=== PATIENT | male | born 1955 | race Caucasian/White ===

== ENCOUNTER → 2017-09-24 | Outpatient (CLI) | payer BC, SELFPAY | PROVIDERS: Family Provider Internal Medicine Adolescent Medicine; Visit Provider Nurse Practitioner Family | DX: M25.561 Pain in right knee (principal) | CPT/HCPCS: 73562 ==

== ENCOUNTER → 2018-10-14 12:38 | Outpatient (CLI) | payer BC, SELFPAY ==
--- NOTE | 2018-10-14 12:45 | XR_ITS ---
XR chest 2V HISTORY: ITS.REASON: ACUTE BRONCHOPNEUMONIA, PERSISTANT COUGH ORDERING PHYSICIAN: Vanessa Henley PATIENT AGE: 63 years COMPARISON: None FINDINGS: The cardiomediastinal silhouette and pulmonary vascularity are within normal limits. The lungs are clear without infiltrates, suspicious nodules, or pleural effusions. Calcified granuloma is present in the right middle lobe No acute bony abnormalities. IMPRESSION: Negative chest, no acute finding
== END ==
PROVIDERS: PCP Internal Medicine Adolescent Medicine; Visit Provider Nurse Practitioner Family
DX: J18.0 Bronchopneumonia, unspecified organism (principal); R05 Cough
CPT/HCPCS: 71046

== ENCOUNTER → 2020-04-14 07:13 | Outpatient (CLI) | payer MEDICARE, SELFPAY ==
--- NOTE | 2020-04-14 07:26 | XR_ITS ---
PROCEDURE: XR CERVICAL SPINE 4V CLINICAL INDICATION: CERVICALGIA Neck pain COMPARISON: No exams were available for comparison FINDINGS: Normal alignment. Upper thoracic kyphosis. Degenerative disc disease C3-C4. Anterior osteophytes C3-C4 and C4-C5. No fracture or dislocation. Minimal foraminal narrowing bilaterally at C3-C4. No lytic or blastic change. IMPRESSION: Degenerative disc disease with mild bilateral foraminal narrowing at C3-C4 Dictated by: Arnel Stone MD 04/14/2020 07:56 Electronically signed by Arnel Stone MD in [place] 04/14/2020 07:56
[2020-04-14 07:31] LABS: Basophils % 0.4 % (0.1-2.0); Eosinophils # 0.1 K/mm3 (0.0-0.4); Eosinophils % 1.2 % (0.1-12.0); Hematocrit 45.1 % (42.0-52.0); Hemoglobin 15.3 g/dL (14.1-18.0); Lymphocytes # 1.2 K/mm3 (0.7-4.5); Lymphocytes % 15.5 % (10-50); Mean Corpuscular Hemoglobin 31.5 pg (27.0-31.2); Mean Corpuscular Volume 92.6 fl (80-94); Mean Platelet Volume 6.6 fl (7.4-10.4); Monocytes # 0.8 K/mm3 (0.1-1.0); Monocytes % 9.8 % (1.7-9.3); Neutrophils # 5.8 K/mm3 (1.8-7.8); Neutrophils % 73.1 % (37.0-80.0); Platelet Count 279 K/mm3 (142-424); Red Blood Count 4.87 M/mm3 (4.60-6.20)
[2020-04-14 08:41] LABS: Erythrocyte Sedimentation Rate 9 mm/hr (0-20)
[2020-04-14 08:45] LABS: Chloride 106 mmol/L (98-107); Potassium 5.3 mmoL/L (3.5-5.1); Sodium 141 mmol/L (136-145)
[2020-04-14 08:47] LABS: Alanine Aminotransferase 53 U/L (12-78); Alkaline Phosphatase 89 U/L (38-126); Aspartate Amino Transferase 37 U/L (17-59); Bilirubin,Total 0.5 mg/dl (0.2-1.3); Blood Urea Nitrogen 13 mg/dl (9-20); Estimated Glomerular Filt Rate 56 ml/min (>60); GFR (African American) 67 ML/MIN (>60)
[2020-04-14 08:48] LABS: Albumin Level 4.3 g/dl (3.5-5.0); Albumin/Globulin Ratio 1.9 (1.1-1.8); Anion Gap 12.3 mEq/L (5-15); Calcium 9.8 mg/dl (8.4-10.2); Carbon Dioxide 28 mmol/L (22.0-30.0); Chol/HDL Ratio 4.4 (1-3.5); Cholesterol 173 mg/dl (140-200); Globulin 2.3 g/dL (1.3-3.2); Glucose 106 mg/dl (74-100); HDL Cholesterol 39 mg/dl (40-60); Total Protein,Serum 6.6 g/dl (6.3-8.2); Triglycerides 209 mg/dl (30-150); Uric Acid 9.1 mg/dl (3.5-8.5); VLDL Cholesterol 42 mg/dL (0-40)
[2020-04-14 08:59] LABS: Direct LDL Cholesterol 105.27 mg/dL (100-129)
== END ==
PROVIDERS: Visit Provider Internal Medicine Adolescent Medicine
DX: M12.9 Arthropathy, unspecified (principal); I10 Essential (primary) hypertension; M10.072 Idiopathic gout, left ankle and foot; M54.2 Cervicalgia
CPT/HCPCS: 36415; 72050; 80053; 80061; 84550; 85025; 85651

== ENCOUNTER → 2020-05-19 11:48 | Outpatient (CLI) | payer MEDICARE, SELFPAY ==
[2020-05-19 12:56] LABS: Basophils % 0.2 % (0.1-2.0); Eosinophils % 0.1 % (0.1-12.0); Hematocrit 43.9 % (42.0-52.0); Hemoglobin 14.8 g/dL (14.1-18.0); Lymphocytes # 0.8 K/mm3 (0.7-4.5); Lymphocytes % 6.2 % (10-50); Mean Corpuscular HGB Conc 33.6 g/dL (31.8-35.4); Mean Corpuscular Hemoglobin 30.2 pg (27.0-31.2); Mean Corpuscular Volume 89.9 fl (80-94); Mean Platelet Volume 7.2 fl (7.4-10.4); Monocytes # 1.2 K/mm3 (0.1-1.0); Monocytes % 8.9 % (1.7-9.3); Neutrophils # 11.2 K/mm3 (1.8-7.8); Neutrophils % 84.6 % (37.0-80.0); Platelet Count 725 K/mm3 (142-424); Red Blood Count 4.89 M/mm3 (4.60-6.20); Red Cell Distribution Width 12.8 % (11.5-17.5); White Blood Count 13.2 K/mm3 (4.8-10.8)
[2020-05-19 13:50] LABS: Chloride 100 mmol/L (98-107)
[2020-05-19 13:51] LABS: Potassium 4.9 mmoL/L (3.5-5.1); Sodium 139 mmol/L (136-145)
[2020-05-19 13:53] LABS: Alanine Aminotransferase 148 U/L (12-78); Alkaline Phosphatase 132 U/L (38-126); Aspartate Amino Transferase 106 U/L (17-59); Bilirubin,Total 0.6 mg/dl (0.2-1.3); Blood Urea Nitrogen 20 mg/dl (9-20); Estimated Glomerular Filt Rate 75 ml/min (>60); GFR (African American) 91 ML/MIN (>60)
[2020-05-19 13:54] LABS: Albumin Level 4.2 g/dl (3.5-5.0); Albumin/Globulin Ratio 1.4 (1.1-1.8); Anion Gap 17.9 mEq/L (5-15); Calcium 9.9 mg/dl (8.4-10.2); Carbon Dioxide 26 mmol/L (22.0-30.0); Globulin 3.1 g/dL (1.3-3.2); Glucose 115 mg/dl (74-100); Total Protein,Serum 7.3 g/dl (6.3-8.2)
[2020-05-19 14:13] LABS: Uric Acid 5.9 mg/dl (3.5-8.5)
== END ==
PROVIDERS: Visit Provider Internal Medicine Adolescent Medicine
DX: M10.9 Gout, unspecified (principal)
CPT/HCPCS: 36415; 80053; 84550; 85025

== ENCOUNTER → 2020-06-19 13:48 | Outpatient (POV) | payer MEDICARE, SELFPAY | PROVIDERS: Visit Provider Dermatology | DX: Z00.00 Encounter for general adult medical examination without abnormal findings (principal) ==

== ENCOUNTER 2020-06-29 17:09 | Emergency (ER) | payer MEDICARE, SELFPAY ==
[2020-06-29 17:18] VITALS: BP 161/91; PULSE 86; RESP 18; TEMP 36.7; O2SAT 99; BMI 28.2
--- NOTE | 2020-06-29 17:31 | CT_ITS ---
PROCEDURE: CT CERVICAL SPINE WO CON CLINICAL INDICATION: fall, posterior neck pain Neck injury with pain, contusion/abrasion or hematoma, cervical sprain/strain the COMPARISON: No exams were available for comparison TECHNIQUE: Axial images obtained with sagittal and coronal reformats. All CT scans at the facility use one or more dose reduction, viz: automated exposure control, ma/kV adjustment per patient size (including targeted exams where dose is matched to indication, i.e. head), or iterative reconstruction technique. Axial spiral CT scanning performed of the cervical spine beginning at the base of the skull and continuing to the upper T-spine. 3-D multiplanar reconstruction with 3-D manipulation of volumetric data set in image rendering was completed by the radiologist and/or technologist with the supervision of the radiologist on independent workstation. FINDINGS: There is straightening/reversal of the normal lordosis which may be due to patient positioning or muscle spasm. No acute fracture or dislocation. Mild multilevel cervical spondylosis is present. C3-C4: Degenerate disc disease with mild endplate hypertrophic change. C4-C5: Mild degenerative disc disease. C5-C6 and C6-C7 show mild degenerative disc disease. There is mild facet hypertrophic/arthritic change at C6-C7. Hypertrophic changes are present at the sternoclavicular joints. Lung apices are clear IMPRESSION: 1. No acute fracture. 2. Cervical spondylosis Dictated by: Arnel Stone MD 06/29/2020 18:43 Arnel Stone MD in [facility] 06/29/2020 18:43
--- NOTE | 2020-06-29 17:31 | CT_ITS ---
PROCEDURE: CT HEAD/BRAIN WO CON CLINICAL INDICATION: fall, headache Posttraumatic pain, Head injury with headache/pain, contusion, abrasion or hematoma COMPARISON: No exams were available for comparison TECHNIQUE: Axial images obtained. All CT scans at the facility use one or more dose reduction, viz: automated exposure control, ma/kV adjustment per patient size (including targeted exams where dose is matched to indication, i.e. head), or iterative reconstruction technique. FINDINGS: No midline shift, mass effect, intracranial hemorrhage, hydrocephalus, or extra-axial fluid collection is evident. There are low-density changes in the left frontal parietal subcortical white matter and in the right parietal temporal white matter nonspecific but could be related to ischemic gliotic changes. The calvarium has an unremarkable appearance. No mastoid effusion. Mild mucosal thickening of the sphenoid and ethmoid sinuses. IMPRESSION: 1. No definite acute finding. 2. Non-specific white matter hypodensities which could be due to ischemic gliotic changes from microvascular disease. Stability may be confirmed with follow-up. Dictated by: Arnel Stone MD 06/29/2020 18:40 Arnel Stone MD in [facility] 06/29/2020 18:40
[2020-06-29 17:32] VITALS: BP 149/83; PULSE 82; O2SAT 98
--- NOTE | 2020-06-29 17:58 | PC.NURSE ---
Pt returned from rad.
--- NOTE | 2020-06-29 18:16 | HMH.EDGENADL ---
ED Disposition Clinical Impression: Occipital headache, Cervicalgia Disposition: Home, Self-Care Condition on Discharge: Good Additional Instructions: Take Tylenol for pain. Prednisone as prescribed. Follow-up with Dr. Munroe in the office next week. Additional instructions for HEADACHE: See your physician as soon as possible for further evaluation. Return immediately if worsening headache, vomiting, problems with vision or speech, fever, numbness or weakness of the extremities, neck pain or stiffness. Prescriptions: predniSONE [Prednisone 20mg Tab] 20 mg PO BID #10 tab Prescription Printed Referrals: Andrzej Munroe MD [Primary Care Provider] - - Critical Care Critical Care Time: No Attestation: On 06/29/20, the high probability of a clinically significant, sudden or life threatening deterioration of the following system(s) required my full and direct attention, intervention and personal management. The time I documented below is in addition to time spent performing reported procedures but includes the following listed in this critical care notation. Medical Decision Making - James Inquiry Pt receiving controlled substance: No Vital Signs: 06/29/20 17:18 06/29/20 17:32 Temperature 98.1 F Temperature Source Oral Pulse Rate [Right Radial] 86 82 Respiratory Rate 18 Blood Pressure [Right Arm] 161/91 H 149/83 H Blood Pressure Mean [Right Arm] 114 105 Blood Pressure Source [Right Arm] Automatic Cuff Automatic Cuff Blood Pressure Position [Right Arm] Sitting Sitting 02 Sat by Pulse Oximetry 99 98 Oxygen Delivery Method Room Air Room Air Orders (Tests/Meds): ORDERS Category Date Time Status CT cervical spine wo con Stat Cat Scan 06/29/20 17:[address] head/brain wo con Stat Cat Scan 06/29/20 17:31 Taken - CT Data CT Scan: Head, C-Spine Time Received: 18:20 ([facility] fax) ED CT Reviewed: Yes: I have viewed the radiologist's interpretation Findings Narrative: Head: No acute intracranial abnormality Cervical spine: Mild degenerative changes throughout the cervical spine. No evidence of acute fracture, malalignment, or discrete bony destruction. General Adult HPI - General Chief complaint: PAIN Stated complaint: pain in back of neck/head Time Seen by Provider: 06/29/20 18:05 Mode of Arrival: Ambulatory Limitations: No Limitations Description of Symptoms (Recalled from ER Triage Doc. by RN): Pt c/o pain in the top of his head and posterior neck pain. Pt reports has been having pain for approx 2 weeks. Pt reports he had a fall approx 3 weeks ago. Pt reports he saw pcp on 06/25/20 and was started on augmentin for sinus infection, pt reports no improvement in symptoms. - History of Present Illness HPI narrative: Complains of posterior neck pain and occipital head pain for about a week or 2, uncertain of exactly when it started. States that it hurts worse at night. When he gets up in the morning he says it is hard to turn his head because of the pain. Pain is exacerbated by movement. Denies any radiation into the arms. No numbness or weakness of the arms. No visual symptoms. He says that he fell about 2 to 3 weeks ago but he does not know whether he hit his head or neck. He says his head and neck pain did not start for days after that fall, therefore he does not feel it is related to the fall although he says he cannot be sure. He states that he saw his primary care doctor, Dr. Munroe, and was put on antibiotic for sinus infection but it did not help. He is not taking any [id number] medications and is on no pain medication. He says he has a history of gout. He has been on steroids previously for his gout and he takes allopurinol. He does not have diabetes. - Related Data Home Medications Medication Instructions Recorded Confirmed Amlodipine Besylate [Amlodipine 10 mg PO DAILY 06/29/20 06/29/20 10mg Tab] Amoxicillin/Potassium Clav 1 tab P
[2020-06-29 18:32] VITALS: BP 152/97; PULSE 82; RESP 20; TEMP 36.7; O2SAT 97
== END 2020-06-29 18:34 | disposition home or self-care (01) ==
PROVIDERS: Emergency Provider Emergency Medicine; PCP Internal Medicine Adolescent Medicine
DX: R51 Headache (principal); M54.2 Cervicalgia; I10 Essential (primary) hypertension
CPT/HCPCS: 70450; 72125; 99282

== ENCOUNTER 2020-07-08 15:47 | Emergency (ER) | payer MEDICARE, SELFPAY ==
[2020-07-08 15:48] VITALS: BP 198/96; PULSE 95; RESP 19; TEMP 36.6; O2SAT 98; BMI 28.2
--- NOTE | 2020-07-08 16:04 | HMH.EDHA ---
ED Disposition Clinical Impression: Occipital headache Disposition: Home, Self-Care Condition on Discharge: Fair Instructions: DI for Headache Additional Instructions: CT exam of head and neck reviewed without any acute intracranial finding. Patient be treated with ketorolac orphenadrine with as needed prescription sent to pharmacy. Patient has been advised to follow-up with his primary care physician for possible MRI if headache persists. Prescriptions: Cyclobenzaprine HCl [Cyclobenzaprine 5mg Tab] 5 mg PO Q8HP PRN #30 tab PRN Reason: pain/spasm Prescription Printed Ketorolac Tromethamine [Toradol 10mg tablet] 10 mg PO Q6H 5 Days #20 tab Prescription Printed Referrals: Andrzej Munroe MD [Primary Care Provider] - - Critical Care Critical Care Time: No Attestation: On , the high probability of a clinically significant, sudden or life threatening deterioration of the following system(s) required my full and direct attention, intervention and personal management. The time I documented below is in addition to time spent performing reported procedures but includes the following listed in this critical care notation. Medical Decision Making - Medical Records Medical records reviewed: Yes: I reviewed the patient's medical records. - James Inquiry Pt receiving controlled substance: No Vital Signs: 07/08/20 15:48 Temperature 97.8 F Temperature Source Oral Pulse Rate [Left Radial] 95 H Respiratory Rate 19 Blood Pressure [Right Arm] 198/96 H Blood Pressure Mean [Right Arm] 130 Blood Pressure Source [Right Arm] Automatic Cuff Blood Pressure Position [Right Arm] Sitting 02 Sat by Pulse Oximetry 98 Oxygen Delivery Method Room Air Headache HPI - General Chief Complaint: Headache Stated Complaint: back of head hurts Time Seen by Provider: 07/08/20 16:00 Mode of Arrival: Ambulatory Limitations: No Limitations Description of Symptoms (Recalled from ER Triage Doc. by RN): c/o headache for one month. States he seen his PCP who told him it was sinuses but pt states he thinks its more than that - History of Present Illness HPI Narrative: This is a 65-year-old male that presents with intermittent headache x4 weeks. Pain is located at the top of the head radiating back to the occiput. Patient was seen and evaluated here approximately 1 week ago and had CT of the cervical spine as well as the head without contrast. Exam was unremarkable with no acute intercranial findings found. Patient reports headache came back a few days ago and has been ongoing. Pain is scribed as sore and constant. Pain 6-7 out of 10 in intensity without exacerbating measures. No nausea or vomiting. No changes in vision or hearing. No focal neurologic deficit. - Related Data Home Medications Medication Instructions Recorded Confirmed Amlodipine Besylate [Amlodipine 10 mg PO DAILY 06/29/20 06/29/20 10mg Tab] Amoxicillin/Potassium Clav 1 tab PO BID 06/29/20 06/29/20 [Amox-Clav 875-125 mg Tablet] Previous Rx's Medication Instructions Recorded predniSONE [Prednisone 20mg 20 mg PO BID #10 tab 06/29/20 Tab] Cyclobenzaprine HCl 5 mg PO Q8HP PRN #30 tab 07/08/20 [Cyclobenzaprine 5mg Tab] Ketorolac Tromethamine [Toradol 10 mg PO Q6H 5 Days #20 tab 07/08/20 10mg tablet] Allergies Allergy/AdvReac Type Severity Reaction Status Date / Time No Known Allergies Allergy Verified 05/11/18 11:51 [facility] History - Hepatitis A Screen Drug use history?: No High risk sexual behaviors?: No History of sexually transmitted infection?: No Currently employed?: No Childcare worker?: No Do you have indoor plumbing?: Yes Do you have electricity?: Yes Attestation statement:: This patient has been screened for Hepatitis A risk factors. I have reviewed the patient's past medical history: Yes Medical History: Denies:: Diabetes Mellitus Type 1, Diabetes Mellitus Type 2 - Social History Ch[place]
[2020-07-08 16:41] VITALS: BP 174/85; PULSE 87; RESP 17; TEMP 36.7; O2SAT 96
== END 2020-07-08 16:49 | disposition home or self-care (01) ==
LOC: ER 16:45
PROVIDERS: Emergency Provider Emergency Medicine; PCP Internal Medicine Adolescent Medicine
DX: G44.89 Other headache syndrome (principal); I10 Essential (primary) hypertension
CPT/HCPCS: 96372; 99281

== ENCOUNTER → 2021-01-17 12:37 | Outpatient (CLI) | payer MEDICARE, SELFPAY ==
[2021-01-17 12:40] LABS: Microscopic, Urine URINE MICROSCOPIC (MICROSCOPIC)
[2021-01-17 13:10] LABS: Appearance,Urine CLEAR (Clear); Bilirubin,Urine Negative (Negative); Blood, Urine Negative (Negative); Color,Urine YELLOW (Yellow); Glucose,Urine (UA) Negative (Negative); Ketones,Urine Negative (Negative); Leukocyte Esterase,Urine Negative (Negative); Nitrate,Urine Negative (Negative); PH,Urine 6.5 (5.0-8.5); Protein,Urine Negative (Negative); Specific Gravity, Urine <= 1.005 (1.005-1.030); Urobilinogen,Urine 0.2 EU/dl (0.2)
[2021-01-17 13:15] LABS: Basophils % 0.4 % (0.1-2.0); Eosinophils # 0.1 K/mm3 (0.0-0.4); Eosinophils % 0.5 % (0.1-12.0); Hematocrit 48.9 % (42.0-52.0); Hemoglobin 15.9 g/dL (14.1-18.0); Lymphocytes # 1.1 K/mm3 (0.7-4.5); Lymphocytes % 13.1 % (10-50); Mean Corpuscular HGB Conc 32.6 g/dL (31.8-35.4); Mean Corpuscular Hemoglobin 29.5 pg (27.0-31.2); Mean Corpuscular Volume 90.5 fl (80-94); Mean Platelet Volume 6.9 fl (7.4-10.4); Monocytes # 0.7 K/mm3 (0.1-1.0); Monocytes % 7.8 % (1.7-9.3); Neutrophils # 6.6 K/mm3 (1.8-7.8); Neutrophils % 78.2 % (37.0-80.0); Platelet Count 314 K/mm3 (142-424); Red Cell Distribution Width 14.3 % (11.5-17.5); White Blood Count 8.4 K/mm3 (4.8-10.8)
[2021-01-17 13:19] LABS: Squamous Epithelial Cell,Urine Occasional #/hpf (0-5)
[2021-01-17 13:37] LABS: Chloride 101 mmol/L (98-107); Sodium 141 mmol/L (136-145)
[2021-01-17 13:38] LABS: Potassium 4.5 mmoL/L (3.5-5.1)
[2021-01-17 13:40] LABS: Alanine Aminotransferase 49 U/L (12-78); Alkaline Phosphatase 123 U/L (38-126); Amylase 61 U/L (30-110); Anion Gap 14.5 mEq/L (5-15); Aspartate Amino Transferase 40 U/L (17-59); Bilirubin,Total 0.8 mg/dl (0.2-1.3); Blood Urea Nitrogen 14 mg/dl (9-20); Calcium 10.2 mg/dl (8.4-10.2); Carbon Dioxide 30 mmol/L (22.0-30.0); Estimated Glomerular Filt Rate 67 ml/min (>60); GFR (African American) 81 ML/MIN (>60); Glucose 106 mg/dl (74-100); Lipase 140 U/L (23-300)
[2021-01-17 13:41] LABS: Albumin Level 5.3 g/dl (3.5-5.0); Globulin 2.6 g/dL (1.3-3.2); Total Protein,Serum 7.9 g/dl (6.3-8.2)
== END ==
PROVIDERS: Visit Provider Internal Medicine Adolescent Medicine
DX: R10.84 Generalized abdominal pain (principal); R35.0 Frequency of micturition
CPT/HCPCS: 36415; 80053; 81001; 82150; 83690; 85025

== ENCOUNTER → 2021-10-03 12:29 | Outpatient (CLI) | payer MEDICARE, SELFPAY ==
[2021-10-03 12:46] LABS: Basophils # 0.2 K/mm3 (0-0.2); Basophils % 3.2 % (0.1-2.0); Eosinophils # 0.1 K/mm3 (0.0-0.4); Eosinophils % 1.2 % (0.1-12.0); Hematocrit 49.7 % (42.0-52.0); Hemoglobin 16.1 g/dL (14.1-18.0); Lymphocytes % 13.9 % (10-50); Mean Corpuscular HGB Conc 32.3 g/dL (31.8-35.4); Mean Corpuscular Hemoglobin 30.2 pg (27.0-31.2); Mean Corpuscular Volume 93.5 fl (80-94); Mean Platelet Volume 7.1 fl (7.4-10.4); Monocytes # 0.7 K/mm3 (0.1-1.0); Monocytes % 10.4 % (1.7-9.3); Neutrophils % 71.3 % (37.0-80.0); Platelet Count 338 K/mm3 (142-424); Red Blood Count 5.31 M/mm3 (4.60-6.20); Red Cell Distribution Width 13.6 % (11.5-17.5)
[2021-10-03 14:23] LABS: Alanine Aminotransferase 81 U/L (12-78); Albumin Level 4.6 g/dl (3.5-5.0); Albumin/Globulin Ratio 1.8 (1.1-1.8); Alkaline Phosphatase 127 U/L (38-126); Anion Gap 13.2 mEq/L (5-15); Aspartate Amino Transferase 59 U/L (17-59); Bilirubin,Total 0.5 mg/dl (0.2-1.3); Blood Urea Nitrogen 14 mg/dl (9-20); Calcium 9.7 mg/dl (8.4-10.2); Carbon Dioxide 26 mmol/L (22.0-30.0); Chloride 103 mmol/L (98-107); Estimated Glomerular Filt Rate 67 ml/min (>60); GFR (African American) 81 ML/MIN (>60); Globulin 2.5 g/dL (1.3-3.2); Glucose 102 mg/dl (74-100); Potassium 4.2 mmoL/L (3.5-5.1); Sodium 138 mmol/L (136-145); Total Protein,Serum 7.1 g/dl (6.3-8.2)
== END ==
PROVIDERS: Visit Provider Internal Medicine Adolescent Medicine
DX: R10.9 Unspecified abdominal pain (principal)
CPT/HCPCS: 36415; 80053; 83735; 85025

== ENCOUNTER → 2021-10-29 13:48 | Outpatient (POV) | payer MEDICARE, SELFPAY | PROVIDERS: Visit Provider Dermatology | DX: Z00.00 Encounter for general adult medical examination without abnormal findings (principal) ==

== ENCOUNTER → 2023-02-09 15:16 | Outpatient (CLI) | payer MEDICARE, SELFPAY | LOC: RT 15:18 | PROVIDERS: PCP Internal Medicine Adolescent Medicine; Visit Provider Internal Medicine Adolescent Medicine | DX: R55 Syncope and collapse (principal) | CPT/HCPCS: 93225; 93226 ==

== ENCOUNTER → 2023-03-05 07:48 | Outpatient (CLI) | payer MEDICARE, SELFPAY ==
--- NOTE | 2023-03-05 | CA_ITS ---
APPROVED REPORT Exam: Pharmacologic Technologist: Itzel Marshall, Ht: 6 ft 0 in Wt: 212 lbs BSA: 2.18 m2 HR: 76 bpm BP: 168/85 mmHg Rhythm: NSR Medical History Medications: Amlodipine,,,,, Stress Test Details Test: LEXISCAN Reason for pharmacologic stress test: physical limitation. HR Resting HR: 75 bpm Max Heart Rate (APMHR): 153 bpm Max HR Achieved: 110 bpm Target HR (85% APMHR): 130 bpm % of APMHR: 72 Recovery HR: 96 bpm BP Resting BP: 168/85 mmHg Max BP: 185/89 mmHg Recovery BP: 168.0/89.0 mmHg ECG Resting ECG: NSR, right axis deviation Stress ECG: Change Arrhythmia: VPC's Recovery ECG: No change Recovery Arrhythmia: None Clinical Exercise duration: 04:01 min Highest Stage Achieved: Stress ECG Conclusion Switched from exercise at pt request. Symptoms: None Arrhythmias/Ectopy: Rare PVC. ST-T Changes: No significant ST changes. Conclusion: Unremarkable Lexiscan stress. Myoview images reported separately. Test Summary REST . . . . . . . Resting REST 08:45 . . 75 . 168/ 85 . . Stage 1 01:00 . . 108 . . . . Stage 2 01:00 . . 102 . . . . Stage 3 01:00 . . 94 . 185/ 89 . . Stage 4 01:00 . . 94 . 173/ 84 . . Stage 4 01:01 . . 94 . 173/ 84 . Stop exercise at 04:01 RECOVERY 01:00 . . 97 . . . . RECOVERY 02:00 . . 93 . . . . RECOVERY 03:00 . . 95 . 168/ 89 . . RECOVERY 03:17 . . 95 . 168/ 89 . . Electronically signed by : Quynh Pérez, 03/05/2023 23:31:03
--- NOTE | 2023-03-05 08:27 | NM_ITS ---
APPROVED REPORT Exam: Nuclear Stress Test Indication: fatigue Patient Location: Outpatient Stress Tech: Itzel Mims MD Tech:Linda Foreman ROBINSON RT(R)(N) Ht: 6 ft 0 in Wt: 212 lbs HR: 75 bpm BP: 168/85 mmHg BSA: 2.18 m2 TID: 0.94 History: fatigue Procedure: Patient received 0.4 mg of intravenous Lexiscan, resting heart rate 75 bpm, resting blood pressure 168/85 mmHg, with Lexiscan maximum heart rate achieved was 110 bpm which is 85 % of the maximum predicted heart rate and blood pressure was 185/89 mmHg. With Lexiscan, patient denied any complaint of chest pain. Cardiac Stress and Resting SPECT Images: Cardiac Stress and Resting SPECT images were obtained using technetium 99m Myoview 32.2 mCi stress and 10.19 mCi at rest. Resting and supine stress imaging demonstrates medium sized, mild, fixed perfusion defect in the inferior LV wall. This perfusion defect no longer visualized with prone stress imaging. Findings are most suggestive of diaphragmatic attenuation. Gated imaging demonstrates normal global and regional LV systolic function. LVEF is calculated at 65%. Conclusion: Diaphragmatic attenuation is present. No definite fixed or reversible perfusion defects. Gated imaging demonstrates normal global and regional LV systolic function. LVEF is calculated at 65%. Electronically signed by : Quynh Pérez, 03/05/2023 23:34:22
== END ==
LOC: RAD 07:49
PROVIDERS: PCP Internal Medicine Adolescent Medicine; Visit Provider Nurse Practitioner Family
DX: R06.09 Other forms of dyspnea (principal)
CPT/HCPCS: 78452; 93017; A9502; J2785

== ENCOUNTER → 2023-03-26 10:11 | Outpatient (CLI) | payer MEDICARE, SELFPAY ==
--- NOTE | 2023-03-26 10:14 | MR_ITS ---
FINAL REPORT CLINICAL HISTORY: HEADACHES FINDINGS: Multi planar MR imaging was obtained through the brain without contrast. The midline structures appear intact. There is no evidence of Chiari malformation. On T2 and flair axial images there is increased signal in the deep white matter throughout, compatible with ischemic/gliotic change. On diffusion-weighted images there is no evidence of restricted diffusion. The visualized paranasal sinuses demonstrate mild soft tissue thickening in the inferior maxillary sinuses.. The seventh and eighth nerve root complexes are intact. IMPRESSION: Increased signal in the deep white matter, diffuse, compatible with ischemic gliotic microvascular change. No acute intracranial abnormality is identified. Reviewed, Interpreted and Dictated by Norman Link MD Transcribed by Carina Carrion Authenticated and [facility]
== END ==
PROVIDERS: PCP Internal Medicine Adolescent Medicine; Visit Provider Physician Assistant
DX: R51.9 Headache, unspecified (principal)
CPT/HCPCS: 70551

== ENCOUNTER 2023-03-28 18:00 | Emergency (ER) | payer MEDICARE, SELFPAY ==
[2023-03-28] VITALS (10 sets, daily range): BP systolic 146–177; BP diastolic 80–101; PULSE 81–104; RESP 17–19; TEMP 36.4; O2SAT 96–98; BMI 29.5
--- NOTE | 2023-03-28 19:27 | PC.NURSE ---
Rounded on pt. No needs voiced.
--- NOTE | 2023-03-28 20:05 | HMH.EDGENADL ---
Discharge Plan Disposition Patient Disposition: Home, Self-Care Condition: Good Prescriptions Prescriptions: No Action amlodipine 10 MG tablet 10 mg PO DAILY amoxicillin-pot clavulanate 1 EACH tablet 1 tab PO BID prednisone 20 MG tablet 20 mg PO BID Qty: 10 0RF ketorolac 10 MG tablet 10 mg PO Q6H 5 Days Qty: 20 0RF cyclobenzaprine 5 MG tablet 5 mg PO Q8HP PRN (Reason: pain/spasm) Qty: 30 0RF Referrals Follow up/Referrals: Andrzej Munroe MD [Primary Care Provider] - See instructions Clinical Impressions Clinical Impression: Migraine Discharge ED Provider: Cecilio Ace General Adult HPI General Chief complaint: Recheck/Abnormal Lab/Rx Stated complaint: LINARES Time Seen by Provider: 03/28/23 18:03 Mode of Arrival: Ambulatory Source of Information: Patient Limitations: No Limitations Description of Symptoms (Recalled from ER Triage Doc. by RN): 67 yo M presents to ED for results from MRI test that was performed on 03/26/23. pt states that he had the MRI due to headaches. History of Present Illness HPI narrative: Is a 67-year-old male presenting with headache and requesting results for MRI. Patient states he has been having headaches, had MRI done on 03/26. Requesting results. States he still having headache. Has not taken any medications for it denies neurologic deficits. Related Data Home Medications Medication Instructions Recorded Confirmed amlodipine 10 mg tablet 10 mg PO DAILY htn 06/29/20 06/29/20 amoxicillin 875 mg-potassium 1 tab PO BID Sinus infection 06/29/20 06/29/20 clavulanate 125 mg tablet Previous Rx's Medication Instructions Recorded prednisone 20 mg tablet 20 mg PO BID #10 tabs 06/29/20 cyclobenzaprine 5 mg tablet 5 mg PO Q8HP PRN pain/spasm #30 07/08/20 tabs ketorolac 10 mg tablet 10 mg PO Q6H 5 days #20 tabs 07/08/20 Allergies Allergy/AdvReac Type Severity Reaction Status Date / Time No Known Allergies Allergy Verified 05/11/18 11:51 [facility] Disclaimer: The information contained in this section may have been updated after the patient was seen, as this information can be updated by other users. Social History Smoking Status: Never smoker second hand exposure: No alcohol intake: never current occupational status: retired Travel in the last 8 weeks: None ROS Obtained: Yes All systems reviewed & no additional complaints except as documented Physical Exam General General appearance: alert and in no apparent distress Head Head exam: atraumatic, normocephalic and normal inspection Eye Eye exam: Present normal appearance, PERRL and EOMI ENT ENT exam: Present normal exam, normal oropharynx, mucous membranes moist, TM's normal bilaterally and normal external ear exam Neck Neck exam: Present normal inspection, full ROM and trachea midline; Absent meningismus or lymphadenopathy Chest Chest inspection: Present normal inspection and symmetric chest wall rise; Absent tenderness Respiratory Respiratory exam: Present normal lung sounds bilaterally; Absent respiratory distress Cardiovascular Cardiovascular exam: Present regular rate and normal rhythm; Absent JVD Abdominal Exam Abdominal exam: Present soft and normal bowel sounds; Absent distention, tenderness or guarding Extremities Exam Extremities exam: Present normal inspection, full ROM and normal capillary refill; Absent calf tenderness Back Exam Back exam: Present normal inspection; Absent tenderness Neurological Exam Neurological exam: Present alert and oriented X3 Psychiatric Psychiatric exam: Present normal affect and normal mood Skin Skin exam: Present warm, dry, intact and normal color Lymphatic Lymphatic Findings: no adenopathy Medical Decision Making Medical Records Medical records reviewed: Yes I reviewed the patient's medical records. James Inquiry Pt receiving controlled substance: No James was queried for this patient: No Vital Signs: 03/28/23 18:
--- NOTE | 2023-03-28 20:18 | PC.NURSE ---
DR. MEEHAN AT BS
== END 2023-03-28 21:32 | disposition home or self-care (01) ==
PROVIDERS: Emergency Provider Emergency Medicine; PCP Internal Medicine Adolescent Medicine
DX: G43.909 Migraine, unspecified, not intractable, without status migrainosus (principal)
CPT/HCPCS: 96361; 96374; 96375; 99284

== ENCOUNTER → 2023-04-06 10:34 | Outpatient (CLI) | payer MEDICARE, SELFPAY ==
--- NOTE | 2023-04-06 10:38 | CA_ITS ---
FINAL REPORT TECHNIQUE: Color Doppler, duplex Doppler and nayak scale sonography of the bilateral neck vasculature was performed. Velocities were measured in the carotid arteries. Stenosis evaluation based on velocity criteria. CLINICAL HISTORY: SYNCOPE,DIZZINESS,MIGRAINE LINARES FINDINGS: The peak systolic velocity of the right common carotid artery is 85.5 cm/sec and internal carotid artery 68.4 cm/sec. The diastolic velocity in the internal carotid artery is 16 cm/sec. The ICA/CCA ratio is 0.98. Visually, no significant plaque is seen.. These findings are consistent with less than 50% stenosis. The external carotid artery is patent. The right vertebral artery is patent with antegrade flow. The peak systolic velocity of the left common carotid artery is 109.2 cm/sec and internal carotid artery 80.8 cm/sec. The diastolic velocity in the internal carotid artery is 18.7 cm/sec. The ICA/CCA ratio is 1. Visually, no significant plaque is seen.. These findings are consistent with less than 50% stenosis. The external carotid artery is patent. The left vertebral artery is patent with antegrade flow. IMPRESSION: No evidence of significant carotid stenosis. Bilateral patent vertebral arteries. If indicated, CTA or MRA could further evaluate. Reviewed, Interpreted and Dictated by Rowdy Argueta III, MD Transcribed by Carina Carrion Authenticated and [facility]
== END ==
PROVIDERS: PCP Internal Medicine Adolescent Medicine; Visit Provider Physician Assistant
DX: R55 Syncope and collapse (principal); G43.009 Migraine without aura, not intractable, without status migrainosus
CPT/HCPCS: 93880

== ENCOUNTER 2023-05-28 10:06 | Emergency (ER) | payer MEDICARE, SELFPAY ==
[2023-05-28] VITALS (9 sets, daily range): BP systolic 153–192; BP diastolic 88–102; PULSE 63–78; RESP 20; TEMP 36.6–36.8; O2SAT 98–99; BMI 29.4
--- NOTE | 2023-05-28 10:25 | ECG_ITS ---
APPROVED REPORT Exam: Resting ECG HR:75 bpm ECG Measurements Heart Rate 75 AXES CO 207 P 81 QRSd 110 QRS 53 QT 386 T 66 QTc 414 Conclusion SINUS RHYTHM NORMAL ECG UNCONFIRMED REPORT Electronically signed by : Andrzej Munroe MD 05/28/2023 16:38:55
--- NOTE | 2023-05-28 10:28 | CT_ITS ---
FINAL REPORT TECHNIQUE: Axial images were obtained of the cervical spine by computed tomography. Coronal and sagittal reconstruction process performed. This study was performed with techniques to keep radiation doses as low as reasonably achievable (ALARA). Individualized dose reduction techniques using automated exposure control or adjustment of mA and/or kV according to the patient''s size were employed. CLINICAL HISTORY: headaches x2 months, worse now COMPARISON: 06/29/2020 FINDINGS: No acute fracture is identified. There is moderate disc space narrowing at C3-4 with endplate sclerosis and posterior osteophyte formation. There is moderate right and mild left neural foraminal narrowing. The remaining levels are unremarkable. Findings are similar to previous. IMPRESSION: Degenerative changes without acute bony abnormality. Reviewed, Interpreted and Dictated by Norman Link MD Transcribed by Mahi Braun Authenticated and [facility]
--- NOTE | 2023-05-28 10:28 | CT_ITS ---
FINAL REPORT TECHNIQUE: multiple axial CT images were performed from the foramen magnum to the vertex without enhancement. This study was performed with techniques to keep radiation doses as low as reasonably achievable (ALARA). Individualized dose reduction techniques using automated exposure control or adjustment of mA and/or kV according to the patient's size were employed. CLINICAL HISTORY: headaches x2 months, worse now COMPARISON: 06/29/2020 FINDINGS: There is mild atrophy. There is moderate patchy decreased attenuation in the deep white matter consistent with chronic ischemia. There is no evidence of hemorrhage. No masses are identified. No extra-axial fluid is seen. The sinuses are normal. IMPRESSION: Atrophy and chronic changes without acute process. Reviewed, Interpreted and Dictated by Norman Link MD Transcribed by Mahi Braun Authenticated and [facility]
--- NOTE | 2023-05-28 10:34 | HMH.EDGENADL ---
Discharge Plan Disposition Patient Disposition: Home, Self-Care Condition: Good Prescriptions Prescriptions: No Action amlodipine 10 MG tablet 10 mg PO DAILY trazodone 50 mg tablet 50 mg PO HSP PRN (Reason: Sleep) valacyclovir 1 gram tablet 1,000 mg PO TIDP PRN (Reason: shingles) metoprolol succinate 100 mg tablet extended release 24 hr 100 mg PO DAILY meloxicam 7.5 mg tablet 7.5 mg PO DAILY doxycycline monohydrate 50 mg tablet 50 mg PO DAILY sertraline 25 mg tablet 25 mg PO DAILY escitalopram oxalate 5 mg tablet 5 mg PO DAILY Referrals Follow up/Referrals: Provider,Referral, MD [Referring] - See instructions Activity Restrictions/Add. Instructions Additional Instructions/Restrictions: You were evaluated in the emergency department today. Please follow-up with your primary care provider over the next 24 to 48 hours to ensure that you are still doing well. Take Tylenol and ibuprofen at home as needed for pain. Return to the emergency department for any new or worsening symptoms, such as worsening headache, new numbness or tingling, unilateral weakness, vision changes, or other concerns. Clinical Impressions Clinical Impression: Occipital headache, Cervicalgia, Migraine Instructions Patient Instructions: DI for Migraine, DI for Neck Pain Discharge ED Provider: Judit Gil General Adult HPI General Chief complaint: Dizziness Stated complaint: dizzyness, pain in both legs Time Seen by Provider: 05/28/23 10:12 Mode of Arrival: Family Vehicle Source of Information: Patient and Medical Record Limitations: No Limitations Description of Symptoms (Recalled from ER Triage Doc. by RN): Pt c/o worsening dizziness, tenderness to posterior head, and parathesia to BLE. States his vision has changed was darker but now it is clearer and I can see farther away clearer . Denies any trauma, MVA, or falls recently. He was at the chiropractor today for a neck adjustment when his symtoms began to worsen. Pt had a brain MRI, stress test, and carotid duplex within the last 2mn. Denies any new medication changes. History of Present Illness HPI narrative: This patient is a 68-year-old male with a history of occipital headache, cervicalgia, migraine, and hypertension presented to the emergency department for evaluation with concern for headache. On medical record review, he has been seen multiple times for this headache and neurologic symptoms over the last several months. He had an MRI at the end of March, which was reassuring aside from age-related change. He states that he went to the chiropractor today and had a neck adjustment, and now his symptoms have worsened. He complains of pain at the base of his skull radiating up into his head and down his neck. He denies any fevers, chills, unilateral weakness, difficulty walking, or other concerns. He reports that he does have tingling in his bilateral feet. He states that this is new. He also notes vision improvement. He states that he previously was not able to see very far, but now his vision seems clearer. He does not usually wear contacts or glasses, as he states that he had corrective surgery. Related Data Home Medications Medication Instructions Recorded Confirmed amlodipine 10 mg tablet 10 mg PO DAILY High Blood Pressure 06/29/20 05/28/23 doxycycline monohydrate 50 mg 50 mg PO DAILY preventative 05/28/23 05/28/23 tablet escitalopram oxalate 5 mg tablet 5 mg PO DAILY mood 05/28/23 05/28/23 meloxicam 7.5 mg tablet 7.5 mg PO DAILY Arthritis 05/28/23 05/28/23 metoprolol succinate 100 mg 100 mg PO DAILY High Blood Pressure 05/28/23 05/28/23 tablet,extended release 24 hr sertraline 25 mg tablet 25 mg PO DAILY Depression 05/28/23 05/28/23 trazodone 50 mg tablet 50 mg PO HSP PRN Sleep 05/28/23 05/28/23 valacyclovir 1 gram tablet 1,000 mg PO TIDP PRN shingles 05/28/23 05/28/23 Allergies Allergy/AdvReac Type Severity Reactio
--- NOTE | 2023-05-28 10:35 | CT_ITS ---
FINAL REPORT TECHNIQUE: NASCET technique utilized for stenosis evaluation. CLINICAL HISTORY: headache, numbness/tingling LE FINDINGS: RIGHT CAROTID: No significant stenosis is seen of the cervical common or internal carotid artery. LEFT CAROTID: No significant stenosis seen of the cervical common or internal carotid artery. VERTEBRALS: The vertebrals are patent. No significant stenosis is present. IMPRESSION: No significant stenosis or dissection. Reviewed, Interpreted and Dictated by Norman Link MD Transcribed by Mahi Braun Authenticated and [facility]
--- NOTE | 2023-05-28 10:35 | CT_ITS ---
FINAL REPORT TECHNIQUE: thin section axial CT with and without IV contrast supplemented with multiplanar 3-D reconstruction of the head. This study was performed with techniques to keep radiation doses as low as reasonably achievable, (ALARA)individualized dose reduction techniques using automated exposure control or adjustment of mA and/or kV according to the patient's size were employed. CLINICAL HISTORY: headache, numbness/tingling LE FINDINGS: The cranial circulation is unremarkable. There is no significant stenosis, aneurysm or occlusion. IMPRESSION: No significant stenosis or occlusion. Reviewed, Interpreted and Dictated by Norman Link MD Transcribed by Mahi Braun Authenticated and [facility]
[2023-05-28 10:39] LABS: Basophils % 0.4 % (0.1-2.0); Eosinophils # 0.1 K/mm3 (0.0-0.4); Eosinophils % 1.3 % (0.1-12.0); Hematocrit 51.8 % (42.0-52.0); Hemoglobin 16.8 g/dL (14.1-18.0); Lymphocytes # 0.9 K/mm3 (0.7-4.5); Lymphocytes % 14.8 % (10-50); Mean Corpuscular HGB Conc 32.5 g/dL (31.8-35.4); Mean Corpuscular Hemoglobin 29.8 pg (27.0-31.2); Mean Corpuscular Volume 91.7 fl (80-94); Mean Platelet Volume 7.5 fl (7.4-10.4); Monocytes # 0.6 K/mm3 (0.1-1.0); Monocytes % 9.5 % (1.7-9.3); Neutrophils # 4.4 K/mm3 (1.8-7.8); Neutrophils % 73.9 % (37.0-80.0); Platelet Count 290 K/mm3 (142-424); Red Blood Count 5.65 M/mm3 (4.60-6.20); Red Cell Distribution Width 13.4 % (11.5-17.5)
[2023-05-28 10:56] LABS: Chloride 101 mmol/L (98-107); Potassium 4.1 mmoL/L (3.5-5.1); Sodium 138 mmol/L (136-145)
[2023-05-28 11:00] LABS: Alanine Aminotransferase 91 U/L (12-78); Albumin Level 4.7 g/dl (3.5-5.0); Alkaline Phosphatase 133 U/L (38-126); Aspartate Amino Transferase 56 U/L (17-59); Bilirubin,Total 0.6 mg/dl (0.2-1.3); Blood Urea Nitrogen 14 mg/dl (9-20); Calcium 9.7 mg/dl (8.4-10.2); Carbon Dioxide 25 mmol/L (22.0-30.0); Creatinine Clearance Estimated 87 mL/min (50-200); Estimated Glomerular Filt Rate 67 ml/min (>60); GFR (African American) 81 ML/MIN (>60); Glucose 115 mg/dl (74-100); Total Protein,Serum 7.9 g/dl (6.3-8.2)
[2023-05-28 11:01] LABS: Coronavirus 19, PCR Not Detected (NotDetected); Influenza A, PCR Not Detected (NotDetected); Influenza B, PCR Not Detected (NotDetected)
[2023-05-28 11:19] LABS: Microscopic, Urine URINE MICROSCOPIC (MICROSCOPIC)
[2023-05-28 11:22] LABS: Appearance,Urine CLEAR (Clear); Bilirubin,Urine Negative (Negative); Blood, Urine Negative (Negative); Color,Urine YELLOW (Yellow); Glucose,Urine (UA) Negative (Negative); Ketones,Urine Negative (Negative); Leukocyte Esterase,Urine Negative (Negative); Nitrate,Urine Negative (Negative); PH,Urine 5.5 (5.0-8.5); Protein,Urine Negative (Negative); Specific Gravity, Urine <= 1.005 (1.005-1.030); Urobilinogen,Urine 0.2 EU/dl (0.2)
[2023-05-28 11:39] LABS: Squamous Epithelial Cell,Urine Occasional #/hpf (0-5); WBC,Urine Occasional #/hpf (0-3)
--- NOTE | 2023-05-28 12:34 | PC.NURSE ---
pt setting on side of bed nothing needed at this time,call light at bs
--- NOTE | 2023-05-28 13:22 | PC.NURSE ---
rounded on pt, urinal given at this time, call light in reach
--- NOTE | 2023-05-28 13:28 | PC.NURSE ---
Pt sitting on side of Ed stretcher without any needs. Call brooks within reach. No other needs at this time.
[2023-05-28 13:44] LABS: Albumin/Globulin Ratio 1.5 (1.1-1.8); Globulin 3.2 g/dL (1.3-3.2)
== END 2023-05-28 13:43 | disposition home or self-care (01) ==
PROVIDERS: Emergency Provider Emergency Medicine; PCP Internal Medicine Adolescent Medicine
DX: G43.909 Migraine, unspecified, not intractable, without status migrainosus (principal); M54.2 Cervicalgia; R20.2 Paresthesia of skin; I10 Essential (primary) hypertension
CPT/HCPCS: 70450; 70496; 70498; 72125; 80053; 81001; 85025; 87636; 93005; 96361; 96374; 96375; 99285; J0131; Q9967

== ENCOUNTER → 2023-05-30 09:51 | Outpatient (CLI) | payer MEDICARE, SELFPAY ==
[2023-05-30 10:13] LABS: Basophils % 0.3 % (0.1-2.0); Eosinophils # 0.1 K/mm3 (0.0-0.4); Eosinophils % 1.4 % (0.1-12.0); Hematocrit 50.9 % (42.0-52.0); Lymphocytes # 0.8 K/mm3 (0.7-4.5); Lymphocytes % 11.5 % (10-50); Mean Corpuscular HGB Conc 33.3 g/dL (31.8-35.4); Mean Corpuscular Hemoglobin 30.7 pg (27.0-31.2); Mean Platelet Volume 7.1 fl (7.4-10.4); Monocytes # 0.5 K/mm3 (0.1-1.0); Neutrophils # 5.1 K/mm3 (1.8-7.8); Neutrophils % 78.8 % (37.0-80.0); Platelet Count 274 K/mm3 (142-424); Red Blood Count 5.54 M/mm3 (4.60-6.20); Red Cell Distribution Width 13.8 % (11.5-17.5); White Blood Count 6.5 K/mm3 (4.8-10.8)
[2023-05-30 10:31] LABS: Alanine Aminotransferase 75 U/L (12-78); Albumin Level 4.9 g/dl (3.5-5.0); Albumin/Globulin Ratio 1.8 (1.1-1.8); Alkaline Phosphatase 128 U/L (38-126); Anion Gap 15.1 mEq/L (5-15); Aspartate Amino Transferase 46 U/L (17-59); Bilirubin,Total 0.5 mg/dl (0.2-1.3); Blood Urea Nitrogen 13 mg/dl (9-20); Calcium 9.6 mg/dl (8.4-10.2); Carbon Dioxide 27 mmol/L (22.0-30.0); Chloride 100 mmol/L (98-107); Estimated Glomerular Filt Rate 60 ml/min (>60); GFR (African American) 73 ML/MIN (>60); Globulin 2.7 g/dL (1.3-3.2); Glucose 123 mg/dl (74-100); Hemoglobin A1C 6.2 % (4.0-6.0); Potassium 4.1 mmoL/L (3.5-5.1); Sodium 138 mmol/L (136-145); Total Protein,Serum 7.6 g/dl (6.3-8.2)
[2023-05-30 10:49] LABS: 25-OH Vitamin D, Total 39.5 ng/mL (30-100); Free Thyroxine Index 3.1 ug/dL (5.93-13.13); Triiodothryronine (T3) Uptake 31 % (23.5-40.5)
[2023-05-30 11:02] LABS: Thyroid Stimulating Hormone 3.92 uIU/mL (0.465-4.68)
[2023-05-30 11:20] LABS: Vitamin B12 468 pg/mL (239-931)
[2023-06-03 14:12] LABS: Vitamin C 0.3 mg/dL (0.4-2.0)
[2023-06-04 11:13] LABS: Treponema pallidum Antibodies Non Reactive
== END ==
LOC: LAB 09:52
PROVIDERS: PCP Internal Medicine Adolescent Medicine; Visit Provider Internal Medicine Adolescent Medicine
DX: G60.9 Hereditary and idiopathic neuropathy, unspecified (principal); R73.09 Other abnormal glucose; E54 Ascorbic acid deficiency; Z79.899 Other long term (current) drug therapy
CPT/HCPCS: 36415; 80053; 82180; 82306; 82607; 83036; 84436; 84443; 84479; 85025; 86780

== ENCOUNTER 2023-06-05 10:00 | Outpatient (RCR) | payer MEDICARE, SELFPAY ==
--- NOTE | 2023-05-13 13:58 | HMH.PTOPEV ---
PT Outpatient Evaluation Rehab PT Outpatient Evaluation Start: 05/13/23 13:15 Freq: Status: Active Protocol: Document 05/13/23 13:43 AYAN (Rec: 05/13/23 13:58 AYAN [id number]) E-signed By Barrett Mcdonnell, PT Outpatient Therapy Subjective History Subjective History Patient is a 68 year old male presenting to outpatient PT with reports of acute cervical spine pain starting approx 2 weeks ago of insidious onset. Patient reports hx of chronic headaches, as well as pain/ disorientation with supine/sit and sit/stand transfers. Patient presented to ED at [facility] and received cranial scans producing negative results. Cervical imaging inidicates DDD/spondylosis. Comorbidities include hx of HTN and HL. Chief Complaint Pain,Stiff Symptom Type Shooting Symptoms Relieved By Heat,Ice,OTC Meds Symptoms Aggravated By Physical Activity,Lifting Prior Functional Limitations None Current Functional Limitations Reaching,Lifting,Housework Symptom Description Intermittent Level of pain today (0-10) 0 Pain scale - at its best (0-10) 0 Pain scale - at its worst (0-10) 8 Cervical Eval Palpation Cervical Muscles R Suboccipital,L Suboccipital, R Upper Trapezius,L Upper Trapezius Cervical/Thoracic Palpation Findings Tenderness,Spasm Posture Head/C-Spine Posture Sitting Position C-Spine Flattened Head/C-Spine Posture Standing Position C-Spine Flattened Flexibility Deficits Upper Trapezius Muscle Length (R) Moderate Tightness,(L) Moderate Tightness Scalene Group Muscle Length (R) Moderate Tightness,(L) Moderate Tightness Pectoralis Minor Muscle Length (R) Moderate Tightness,(L) Moderate Tightness Passive Joint Mobility Cervical PIVM Dec: R OA L OA R AA L AA R C2/3 L C2/3 R C3/4 L C3/4 R C4/5 L C4/5 R C5/6 L C5/6
== END 2023-06-05 10:05 | disposition home or self-care (01) ==
LOC: PT 10:00
PROVIDERS: PCP Internal Medicine Adolescent Medicine; Visit Provider Nurse Practitioner Family
DX: M54.2 Cervicalgia (principal)
CPT/HCPCS: 97010; 97012; 97014; 97110; 97140; 97163; G0283

== ENCOUNTER → 2023-06-12 14:37 | Outpatient (CLI) | payer MEDICARE, SELFPAY ==
--- NOTE | 2023-06-12 14:41 | MR_ITS ---
FINAL REPORT CLINICAL HISTORY: PAIN IN RIGHT AND LEFT LEG FINDINGS: Multiplanar MR imaging of the lumbar spine was performed without contrast. On the sagittal T2-weighted images, disc degeneration is seen at multiple levels. There is mild anterolisthesis of L5 on S1. There is no evidence of fracture. Several hemangiomas are present. The conus has an unremarkable appearance. L1-2: An annular bulge is present. There is no significant canal stenosis or neural foraminal narrowing. L2-3: An annular bulge is present. A left posterolateral disc protrusion is present. There is moderate bilateral neural foraminal narrowing. L3-4: An annular bulge is present. Vertebral osteophytes are present. Moderate bilateral neural foraminal narrowing is seen. L4-5: An annular bulge is present. A small central disc protrusion mildly indents the thecal sac and contacts the L5 nerve roots. There is moderate bilateral neural foraminal narrowing. L5-S1: An annular bulge is present. Vertebral osteophytes and bilateral facet arthropathy are present. There is severe left greater than right neural foraminal narrowing. Note is made of spurring at the SI joints. IMPRESSION: Multilevel degenerative disc disease and spondylosis as described. Small central L4-5 disc protrusion which contacts the L5 nerve roots. Authenticated and [facility]
== END ==
PROVIDERS: PCP Internal Medicine Adolescent Medicine; Visit Provider Internal Medicine Adolescent Medicine
DX: M54.50 Low back pain, unspecified (principal); G60.9 Hereditary and idiopathic neuropathy, unspecified; M79.604 Pain in right leg; M79.605 Pain in left leg
CPT/HCPCS: 72148; 76376

== ENCOUNTER 2023-10-29 12:02 | Outpatient (CLI) | payer MEDICARE, SELFPAY ==
[2023-10-29 12:54] LABS: Chloride 98 mmol/L (98-107)
[2023-10-29 12:55] LABS: Potassium 4.6 mmoL/L (3.5-5.1); Sodium 136 mmol/L (136-145)
[2023-10-29 12:57] LABS: Alanine Aminotransferase 78 U/L (12-78); Alkaline Phosphatase 125 U/L (38-126); Aspartate Amino Transferase 46 U/L (17-59); Bilirubin,Total 0.9 mg/dl (0.2-1.3); Blood Urea Nitrogen 10 mg/dl (9-20); Estimated Glomerular Filt Rate 74 ml/min (>60); GFR (African American) 90 ML/MIN (>60)
[2023-10-29 12:58] LABS: Albumin Level 4.4 g/dl (3.5-5.0); Albumin/Globulin Ratio 1.6 (1.1-1.8); Anion Gap 12.6 mEq/L (5-15); Calcium 9.2 mg/dl (8.4-10.2); Carbon Dioxide 30 mmol/L (22.0-30.0); Globulin 2.7 g/dL (1.3-3.2); Glucose 122 mg/dl (74-100); Total Protein,Serum 7.1 g/dl (6.3-8.2)
[2023-10-29 13:28] LABS: Erythrocyte Sedimentation Rate 12 mm/hr (0-20); Uric Acid 5.6 mg/dl (3.5-8.5)
[2023-10-29 17:50] LABS: Basophils % 0.4 % (0.1-2.0); Eosinophils # 0.1 K/mm3 (0.0-0.4); Eosinophils % 0.7 % (0.1-12.0); Hematocrit 47.9 % (42.0-52.0); Hemoglobin 16.6 g/dL (14.1-18.0); Lymphocytes # 1.3 K/mm3 (0.7-4.5); Lymphocytes % 11.5 % (10-50); Mean Corpuscular HGB Conc 34.7 g/dL (31.8-35.4); Mean Corpuscular Hemoglobin 31.1 pg (27.0-31.2); Mean Corpuscular Volume 89.5 fl (80-94); Mean Platelet Volume 8.8 fl (7.4-10.4); Monocytes # 1.5 K/mm3 (0.1-1.0); Monocytes % 13.2 % (1.7-9.3); Neutrophils # 8.4 K/mm3 (1.8-7.8); Neutrophils % 74.2 % (37.0-80.0); Platelet Count 307 K/mm3 (142-424); Red Blood Count 5.35 M/mm3 (4.60-6.20); Red Cell Distribution Width 12.8 % (11.5-17.5); White Blood Count 11.3 K/mm3 (4.8-10.8)
== END 2023-10-29 23:59 ==
PROVIDERS: PCP Nurse Practitioner Family; Visit Provider Nurse Practitioner Family
DX: M79.89 Other specified soft tissue disorders (principal)
CPT/HCPCS: 36415; 80053; 84550; 85025; 85651; 86140

== ENCOUNTER 2023-11-02 15:47 | Outpatient (CLI) | payer MEDICARE, SELFPAY ==
--- NOTE | 2023-11-02 15:53 | XR_ITS ---
FINAL REPORT CLINICAL HISTORY: LF UPPER EXTREMITY SWELLING COMPARISON: None FINDINGS: LEFT WRIST Three views show no evidence of an acute, displaced fracture or dislocation of the visualized bony architecture. There is mild degenerative change. IMPRESSION: Mild degenerative change without acute bony abnormality. Reviewed, Interpreted and Dictated by Sara Pineda MD Transcribed by Regina Lynn Authenticated and [facility][1]
== END 2023-11-02 23:59 ==
LOC: RAD 15:49
PROVIDERS: PCP Internal Medicine Adolescent Medicine; Visit Provider Nurse Practitioner Family
DX: M25.532 Pain in left wrist (principal); M79.89 Other specified soft tissue disorders
CPT/HCPCS: 73110

== ENCOUNTER 2023-11-19 12:17 | Outpatient (CLI) | payer MEDICARE, SELFPAY ==
--- NOTE | 2023-11-19 12:32 | XR_ITS ---
FINAL REPORT CLINICAL HISTORY: COUGH, congestion COMPARISON: None FINDINGS: Two views of the chest were obtained. The heart size and pulmonary vascularity are within normal limits. The mediastinum is normal. No acute pulmonary abnormality is identified. There is no pneumothorax. Moderate thoracic spine degenerative changes present. IMPRESSION: No active cardiopulmonary disease. Reviewed, Interpreted and Dictated by Rowdy Argueta III, MD Transcribed by Carina Carrion Authenticated and [facility]
== END 2023-11-19 23:59 ==
LOC: RAD 12:18
PROVIDERS: PCP Internal Medicine Adolescent Medicine; Visit Provider Nurse Practitioner Family
DX: R05.3 Chronic cough (principal); R09.89 Other specified symptoms and signs involving the circulatory and respiratory systems
CPT/HCPCS: 71046

== ENCOUNTER 2024-08-09 07:39 | Outpatient (CLI) | payer MEDICARE, SELFPAY ==
--- NOTE | 2024-08-09 | CA_ITS ---
FINAL REPORT TECHNIQUE: Color Doppler, duplex Doppler and compression sonography of the left lower extremity deep venous systems was performed. CLINICAL HISTORY: redness near scratches, swelling x 1 week COMPARISON: None FINDINGS: There is no evidence of deep venous thrombosis from the level of the groin to the calf. The veins are patent and compressible. IMPRESSION: No evidence of deep venous thrombosis left lower extremity. Authenticated and [facility]
== END 2024-08-09 23:59 | disposition home or self-care (01) ==
LOC: RT 07:40
PROVIDERS: PCP Internal Medicine Adolescent Medicine; Visit Provider Nurse Practitioner Family
DX: R60.0 Localized edema (principal); I83.90 Asymptomatic varicose veins of unspecified lower extremity; L03.116 Cellulitis of left lower limb
CPT/HCPCS: 93971

== ENCOUNTER 2024-09-09 11:26 | Outpatient (CLI) | payer MEDICARE, SELFPAY ==
--- NOTE | 2024-09-09 11:30 | XR_ITS ---
FINAL REPORT CLINICAL HISTORY: EFFUSION OF BURSA OF LT KNEE COMPARISON: None FINDINGS: Three views of the left knee reveal no evidence of fracture or dislocation. The bony alignment is normal. There is mild degenerative change. Mild vascular calcifications are noted. There is a small joint effusion. IMPRESSION: Mild degenerative change and small joint effusion. Reviewed, Interpreted and Dictated by Rowdy Argueta III, MD Transcribed by Regina Lynn Authenticated and [facility]
== END 2024-09-09 23:59 | disposition home or self-care (01) ==
LOC: RAD 11:28
PROVIDERS: PCP Internal Medicine Adolescent Medicine; Visit Provider Nurse Practitioner Family
DX: M25.462 Effusion, left knee (principal)
CPT/HCPCS: 73562

== ENCOUNTER 2024-09-13 08:37 | Day surgery (SDC) | payer MEDICARE, SELFPAY ==
[2024-09-12 14:31] VITALS: BMI 30.4
[2024-09-13 09:07] VITALS: BP 149/84; PULSE 85; RESP 17; TEMP 36.6; O2SAT 97
[2024-09-13] MEDS: TETRACAINE 0.5% OPTH SOL 15ML OP (09:11)
[2024-09-13] MEDS: PHENYLEPHRINE 2.5% OPHTH SOLN 2ML OP (09:11)
[2024-09-13] MEDS: TROPICAMIDE 1% OPTH SOLN 2ML OP (09:11)
[2024-09-13] MEDS: APRACLONIDINE 0.5% OPHTH SOLN 5ML OP (09:11)
== END 2024-09-13 10:34 | disposition home or self-care (01) ==
LOC: OUTP 08:38
PROVIDERS: PCP Internal Medicine Adolescent Medicine; Visit Provider Ophthalmology
PROC: (CPT 66821; principal; 2024-09-13 08:00)
DX: H26.491 Other secondary cataract, right eye (principal)
CPT/HCPCS: 66821

== ENCOUNTER 2024-09-15 11:34 | Outpatient (CLI) | payer MEDICARE, SELFPAY ==
--- NOTE | 2024-09-15 11:41 | XR_ITS ---
FINAL REPORT CLINICAL HISTORY: left hip pain FINDINGS: Left hip Three views were obtained. There is no fracture or dislocation. There are mild degenerative changes. No soft tissue abnormality is identified. IMPRESSION: No acute process. Reviewed, Interpreted and Dictated by Rowdy Argueta III, MD Transcribed by Mahi Braun Authenticated and [facility]
== END 2024-09-15 23:59 | disposition home or self-care (01) ==
LOC: RAD 11:35
PROVIDERS: PCP Internal Medicine Adolescent Medicine; Visit Provider Physician Assistant
DX: M25.552 Pain in left hip (principal)
CPT/HCPCS: 73502

== ENCOUNTER 2024-11-07 16:53 | Outpatient (CLI) | payer MEDICARE, SELFPAY ==
--- NOTE | 2024-11-07 17:08 | XR_ITS ---
PROCEDURE INFORMATION: Exam: XR Cervical Spine Exam date and time: 11/07/2024 5:14 PM Age: 69 years old Clinical indication: Neck pain; Additional info: C/O neck pain TECHNIQUE: Imaging protocol: Radiologic exam of the cervical spine. Views: 4 or 5 views. COMPARISON: CT CERVICAL SPINE WO CON 05/28/2023 11:24 AM FINDINGS: Bones/joints: Degenerative change most significant at C3-C4 where there is mild loss of intervertebral disc height, suspicion of at least [id number] bilateral neural foraminal narrowing. Calcified hilar and mediastinal lymph nodes. Soft tissues: Unremarkable. IMPRESSION: 1. Degenerative changes most significant at C3-C4 as highlighted above. 2. Sequela of pulmonary granulomatous disease. 3. No acute abnormality.
== END 2024-11-07 23:59 | disposition home or self-care (01) ==
LOC: RAD 16:54
PROVIDERS: PCP Internal Medicine Adolescent Medicine; Visit Provider Internal Medicine Adolescent Medicine
DX: M54.2 Cervicalgia (principal)
CPT/HCPCS: 72050

== ENCOUNTER 2024-11-16 13:07 | Emergency (ER) | payer MEDICARE, SELFPAY ==
[2024-11-16] VITALS (11 sets, daily range): BP systolic 168–192; BP diastolic 91–110; PULSE 98–111; RESP 16–18; TEMP 36.5–36.7; O2SAT 97–100
--- NOTE | 2024-11-16 13:40 | ED_ITS ---
Discharge Plan Disposition Patient Disposition: Home, Self-Care Condition: Good Prescriptions Prescriptions: New methocarbamol 750 mg tablet 750 mg PO Q6H PRN (Reason: muscle spasm) Qty: 20 0RF ondansetron 4 mg tablet,disintegrating 4 mg PO QID PRN (Reason: nausea and vomiting) Qty: 10 0RF No Action allopurinol 100 mg tablet 100 mg PO DAILY Qty: 30 2RF amlodipine 10 MG tablet 10 mg PO DAILY metoprolol succinate 100 mg tablet extended release 24 hr 100 mg PO DAILY Referrals Follow up/Referrals: Andrzej Munroe MD [Primary Care Provider] - See instructions Activity Restrictions/Add. Instructions Additional Instructions/Restrictions: With your PCP within 48 hours for recheck. If you have any new continuing or worsening signs or symptoms follow-up with your PCP sooner or return to the ER as needed. Clinical Impressions Clinical Impression: Cervicalgia Instructions Patient Instructions: DI for Neck Pain Print Language Print Language: [place] Discharge ED Provider: Cecilio Ace General Adult HPI <LOULOU Lim - Last Filed: 11/16/24 20:30> General Chief complaint: Neck Pain/Injury Stated complaint: head and neck pain Time Seen by Provider: 11/16/24 13:41 Mode of Arrival: Ambulatory Source of Information: Patient Limitations: No Limitations Description of Symptoms (Recalled from ER Triage Doc. by RN): Pt presents with c/o neck pain that radiates into head. Pt states he was seen by his PCP for it last week and is supposed to have an MRI tomorrow. Pt also states he has not had much of an appetite, and has a weird smell to his nose. History of Present Illness HPI narrative: Patient presents for evaluation of what he describes as his neck jerking . Patient is a difficult historian and I am unable to elicit anything other than that however he denies pain headache fever chills hemoptysis hematochezia melena nausea vomiting diarrhea focal neurologic deficit change in vision sense of smell etc. He states it began from being manipulated by chiropractor. He reports no aggravating or relieving factors. Related Data Home Medications ?Medication ?Instructions ?Recorded ?Confirmed amlodipine 10 mg tablet 10 mg PO DAILY High Blood Pressure 06/29/20 11/16/24 metoprolol succinate 100 mg 100 mg PO DAILY High Blood Pressure 05/28/23 11/16/24 tablet,extended release 24 hr Previous Rx's ?Medication ?Instructions ?Recorded allopurinol 100 mg tablet 100 mg PO DAILY #30 tabs 09/22/24 methocarbamol 750 mg tablet 750 mg PO Q6H PRN muscle spasm #20 11/16/24 tabs ondansetron 4 mg disintegrating 4 mg PO QID PRN nausea and 11/16/24 tablet vomiting #10 tabs Allergies Allergy/AdvReac Type Severity Reaction Status Date / Time No Known Allergies Allergy Verified 09/22/24 11:11 PFS <LOULOU Lim - Last Filed: 11/16/24 20:30> [facility] Disclaimer: The information contained in this section may have been updated after the patient was seen, as this information can be updated by other users. Medical History Hypertension Surgical History No significant past surgical history Family History Other Cancer Coronary artery disease Hypertension Social History Smoking Status: Never smoker second hand exposure: No alcohol intake: former substance use type: denies use current occupational status: retired Travel in the last 8 weeks: None household members: other housing: house marital status: Have you lived/traveled outside [place] in past 30 days?: No Contact w/someone who lives/traveled outside US past 30 days?: No Exposure to someone with infectious disease in past 14 days?: No Do you have a fever (greater than 100.4 F or 38 C)?: No Have you tested positive for COVID-19: No Exposed to someone with COVID-19 in past 14 days?: No Do you have a sore throat?: No Do you have a cough?: No Do you have any weakness?: No Do you have any diarrhea?: No Are you experiencing any unusual bleeding?: No Do you have any muscle aches/pain?: No Do you have any abdominal pain?: No Are you experiencing loss of taste or smell?: No Other Medical History Have you received the Flu Vaccine for this season: No Have you received the Pneumonia Vaccine: Yes <LOULOU Lim - Last Filed: 11/16/24 20:30> ROS Obtained: Yes Systems reviewed as appropriate & no additional complaints except as documented Physical Exam <LOULOU Lim - Last Filed: 11/16/24 20:30> General General appearance: alert and in no apparent distress Respiratory Respiratory exam: Present normal lung sounds bilaterally Cardiovascular Cardiovascular exam: Present regular rate Neurological Exam Neurological exam: Present alert and oriented X3 Lymphatic Lymphatic Findings: no adenopathy Medical Decision Making <LOULOU Lim - Last Filed: 11/16/24 20:30> Medical Records Medical records reviewed: Yes I reviewed the patient's medical records. Screening: Per USPSTF and CDC recommendations, given the prevalence of disease in our region, it is our hospital?s policy to screen for HIV and viral Hepatitis for all patients aged 18 and over and those with ongoing risk factors. James Inquiry Pt receiving controlled substance: No Vital Signs: 11/16/24 13:22 11/16/24 14:01 11/16/24 14:30 Temperature 97.7 F Temperature Source Oral Pulse Rate 109 H 104 H Pulse Rate [Right] 98 H Respiratory Rate 16 Blood Pressure 181/93 H 168/91 H Blood Pressure [Right Arm] 192/98 H Blood Pressure Mean [Right Arm] 129 Blood Pressure Source Blood Pressure Source [Right Arm] Automatic Cuff Blood Pressure Position Blood Pressure Position [Right Arm] Sitting 02 Sat by Pulse Oximetry 98 99 98 Oxygen Delivery Method Room Air Room Air Room Air 11/16/24 15:00 11/16/24 15:30 11/16/24 16:00 Temperature Temperature Source Pulse Rate 101 H 109 H 109 H Pulse Rate [Right] Respiratory Rate Blood Pressure 170/96 H 178/106 H 177/110 H Blood Pressure [Right Arm] Blood Pressure Mean [Right Arm] Blood Pressure Source Blood Pressure Source [Right Arm] Blood Pressure Position Blood Pressure Position [Right Arm] 02 Sat by Pulse Oximetry 100 99 99 Oxygen Delivery Method Room Air Room Air Room Air 11/16/24 16:12 11/16/24 16:30 11/16/24 17:00 Temperature Temperature Source Pulse Rate 111 H 103 H 107 H Pulse Rate [Right] Respiratory Rate Blood Pressure 170/103 H 169/96 H 173/96 H Blood Pressure [Right Arm] Blood Pressure Mean [Right Arm] Blood Pressure Source Blood Pressure Source [Right Arm] Blood Pressure Position Blood Pressure Position [Right Arm] 02 Sat by Pulse Oximetry 97 97 99 Oxygen Delivery Method Room Air Room Air Room Air 11/16/24 17:30 11/16/24 17:52 Temperature 98.1 F Temperature Source Oral Pulse Rate 103 H 105 H Pulse Rate [Right] Respiratory Rate 18 Blood Pressure 174/101 H 174/101 H Blood Pressure [Right Arm] Blood Pressure Mean [Right Arm] Blood Pressure Source Automatic Cuff Blood Pressure Source [Right Arm] Blood Pressure Position Sitting Blood Pressure Position [Right Arm] 02 Sat by Pulse Oximetry 99 Oxygen Delivery Method Room Air Room Air Lab Data Lab results reviewed: Yes I reviewed the patient's lab results. Lab Results 11/16/24 13:50: WBC 11.4 H, RBC 5.55, Hgb 16.6, Hct 47.4, MCV 85.4, MCH 29.9, MCHC 35.0, RDW 12.9, Plt Count 351, MPV 9.0, Neut % (Auto) 80.7 H, Lymph % (Auto) 8.7 L, [place] % (Auto) 9.6 H, Eos % (Auto) 0.1, Baso % (Auto) 0.4, Neut # (Auto) 9.2 H, Lymph # (Auto) 1.0, [place] # (Auto) 1.1 H, Eos # (Auto) 0.0, Baso # (Auto) 0.0, PT 11.0, INR 0.98, Sodium 135 L, Potassium 3.7, Chloride 98, Carbon Dioxide 26, Anion Gap 14.7, BUN 12, Creatinine 1.00, Estimated Creat Clear 98, Estimated GFR 74, Est GFR ( Amer) 90, Glucose 272 H, Calcium 9.1, Total Bilirubin 0.7, AST 61 H, ALT 132 H, Alkaline Phosphatase 148 H, Total Protein 8.0, Albumin 5.1 H, Globulin 2.9, Albumin/Globulin Ratio 1.8 11/16/24 13:50 11/16/24 13:50 Orders (Tests/Meds): ED MEDICATIONS Discontinued Medications Generic Name Dose Route Start Last Admin Trade Name Freq PRN Reason Stop Dose Admin Iopamidol 80 ml 11/16/24 14:46 11/16/24 14:47 Iopamidol-370 (76%);100ml Bottle IV 11/16/24 14:47 80 ml ONCE ONE Administration Sodium Chloride 50 ml 11/16/24 14:46 11/16/24 14:47 0.9 % Sodium Chloride 50 Ml Vial IV 11/16/24 14:47 50 ml ONCE ONE Administration Sodium Chloride 10 ml 11/16/24 14:46 11/16/24 14:47 Sodium Chloride 0.9% 10ml Syr (Rad Only) IV 12/16/24 14:45 10 ml NEEDED PRN Administration Maintain IV Site ORDERS Category Date Time Status CT angio head Stat Cat Scan 11/16/24 13:[address] angio neck Stat Cat Scan 11/16/24 13:54 Taken CBC w/Auto Diff [Complete Blood Count Auto Diff] Stat Lab 11/16/24 13:50 Completed CMP [Comprehensive Metabolic Panel] Stat Lab 11/16/24 13:50 Completed INR [Prothrombin Time INR] Stat Lab 11/16/24 13:50 Completed Medical Decision Narrative: In summary patient is a 69-year-old male who presents to the emergency department for evaluation of neck jerking . Patient is initially hypertensive with a blood pressure 192/98 with a pulse of 98 normal sinus rhythm on the bedside monitor breathing 16 times a minute satting at 98% on room air upon arrival, afebrile at 97.7. Physical exam however is unremarkable as patient has no palpable tenderness in the midline no nuchal rigidity no paraspinous muscular tenderness patient has full range of motion of 45 degrees in all cardinal planes of his neck he is [place] C-spine rule negative and Nexus negative, and he has full range of motion of his upper extremities is neurovascularly intact in the bilateral upper extremities with no focal neurologic deficits pupils equal round reactive to light left coma score is 15 cranial nerves II through XII are intact grossly to exam patient is awake alert and oriented person place and circumstance.. Differential diagnosis includes possible soft tissue injury versus vascular injury etc. Initial workup will be conducted with CTA of the head and neck. Initial interventions include Robaxin for now as patient has no objective findings on physical exam and only describes jerking sensation . Interpretation of his KHAN performed by me and his hematologic labs are nonactionable although patient does have transaminitis he has no hyperbilirubinemia and has no gastrointestinal symptoms, my informal interpretation of his CTA of his head and neck shows no evidence of dissection or vascular compromise prior to radiology read. upon repeat evaluation patient did not have any improvement in his subjective symptoms after initial intervention however he then informed me that he has an MRI scheduled tomorrow for this exact same complaint for which she saw his PCP for for already.. Given this patient is appropriate for discharge with follow-up with his PCP after he has his MRI tomorrow for recheck. And while there remains diagnostic uncertainty at the root cause of his problem we have ascertained that he has no vascular compromise and likely represents soft tissue injury and MRI is the appropriate study in that context. Patient advised if he has any new or worsening signs or symptoms to return to the ER as needed. <Cecilio Ace MD - Last Filed: 11/16/24 21:48> Vital Signs: 11/16/24 13:22 11/16/24 14:01 11/16/24 14:30 Temperature 97.7 F Temperature Source Oral Pulse Rate 109 H 104 H Pulse Rate [Right] 98 H Respiratory Rate 16 Blood Pressure 181/93 H 168/91 H Blood Pressure [Right Arm] 192/98 H Blood Pressure Mean [Right Arm] 129 Blood Pressure Source Blood Pressure Source [Right Arm] Automatic Cuff Blood Pressure Position Blood Pressure Position [Right Arm] Sitting 02 Sat by Pulse Oximetry 98 99 98 Oxygen Delivery Method Room Air Room Air Room Air 11/16/24 15:00 11/16/24 15:30 11/16/24 16:00 Temperature Temperature Source Pulse Rate 101 H 109 H 109 H Pulse Rate [Right] Respiratory Rate Blood Pressure 170/96 H 178/106 H 177/110 H Blood Pressure [Right Arm] Blood Pressure Mean [Right Arm] Blood Pressure Source Blood Pressure Source [Right Arm] Blood Pressure Position Blood Pressure Position [Right Arm] 02 Sat by Pulse Oximetry 100 99 99 Oxygen Delivery Method Room Air Room Air Room Air 11/16/24 16:12 11/16/24 16:30 11/16/24 17:00 Temperature Temperature Source Pulse Rate 111 H 103 H 107 H Pulse Rate [Right] Respiratory Rate Blood Pressure 170/103 H 169/96 H 173/96 H Blood Pressure [Right Arm] Blood Pressure Mean [Right Arm] Blood Pressure Source Blood Pressure Source [Right Arm] Blood Pressure Position Blood Pressure Position [Right Arm] 02 Sat by Pulse Oximetry 97 97 99 Oxygen Delivery Method Room Air Room Air Room Air 11/16/24 17:30 11/16/24 17:52 Temperature 98.1 F Temperature Source Oral Pulse Rate 103 H 105 H Pulse Rate [Right] Respiratory Rate 18 Blood Pressure 174/101 H 174/101 H Blood Pressure [Right Arm] Blood Pressure Mean [Right Arm] Blood Pressure Source Automatic Cuff Blood Pressure Source [Right Arm] Blood Pressure Position Sitting Blood Pressure Position [Right Arm] 02 Sat by Pulse Oximetry 99 Oxygen Delivery Method Room Air Room Air Lab Data Lab Results 11/16/24 13:50: WBC 11.4 H, RBC 5.55, Hgb 16.6, Hct 47.4, MCV 85.4, MCH 29.9, MCHC 35.0, RDW 12.9, Plt Count 351, MPV 9.0, Neut % (Auto) 80.7 H, Lymph % (Auto) 8.7 L, [place] % (Auto) 9.6 H, Eos % (Auto) 0.1, Baso % (Auto) 0.4, Neut # (Auto) 9.2 H, Lymph # (Auto) 1.0, [place] # (Auto) 1.1 H, Eos # (Auto) 0.0, Baso # (Auto) 0.0, PT 11.0, INR 0.98, Sodium 135 L, Potassium 3.7, Chloride 98, Carbon Dioxide 26, Anion Gap 14.7, BUN 12, Creatinine 1.00, Estimated Creat Clear 98, Estimated GFR 74, Est GFR ( Amer) 90, Glucose 272 H, Calcium 9.1, Total Bilirubin 0.7, AST 61 H, ALT 132 H, Alkaline Phosphatase 148 H, Total Protein 8.0, Albumin 5.1 H, Globulin 2.9, Albumin/Globulin Ratio 1.8 Orders (Tests/Meds): ED MEDICATIONS Discontinued Medications Generic Name Dose Route Start Last Admin Trade Name Freq PRN Reason Stop Dose Admin Iopamidol 80 ml 11/16/24 14:46 11/16/24 14:47 Iopamidol-370 (76%);100ml Bottle IV 11/16/24 14:47 80 ml ONCE ONE Administration Sodium Chloride 50 ml 11/16/24 14:46 11/16/24 14:47 0.9 % Sodium Chloride 50 Ml Vial IV 11/16/24 14:47 50 ml ONCE ONE Administration Sodium Chloride 10 ml 11/16/24 14:46 11/16/24 14:47 Sodium Chloride 0.9% 10ml Syr (Rad Only) IV 12/16/24 14:45 10 ml NEEDED PRN Administration Maintain IV Site ORDERS Category Date Time Status CT angio head Stat Cat Scan 11/16/24 13:[address] angio neck Stat Cat Scan 11/16/24 13:54 Taken CBC w/Auto Diff [Complete Blood Count Auto Diff] Stat Lab 11/16/24 13:50 Completed CMP [Comprehensive Metabolic Panel] Stat Lab 11/16/24 13:50 Completed INR [Prothrombin Time INR] Stat Lab 11/16/24 13:50 Completed Medical Decision Narrative: In summary patient is a 69-year-old male who presents to the emergency department for evaluation of neck jerking . Patient is initially hypertensive with a blood pressure 192/98 with a pulse of 98 normal sinus rhythm on the bedside monitor breathing 16 times a minute satting at 98% on room air upon arrival, afebrile at 97.7. Physical exam however is unremarkable as patient has no palpable tenderness in the midline no nuchal rigidity no paraspinous muscular tenderness patient has full range of motion of 45 degrees in all cardinal planes of his neck he is [place] C-spine rule negative and Nexus negative, and he has full range of motion of his upper extremities is neurovascularly intact in the bilateral upper extremities with no focal neurologic deficits pupils equal round reactive to light left coma score is 15 cranial nerves II through XII are intact grossly to exam patient is awake alert and oriented person place and circumstance.. Differential diagnosis includes possible soft tissue injury versus vascular injury etc. Initial workup will be conducted with CTA of the head and neck. Initial interventions include Robaxin for now as patient has no objective findings on physical exam and only describes jerking sensation . Interpretation of his KHAN performed by me and his hematologic labs are nonactionable although patient does have transaminitis he has no hyperbilirubinemia and has no gastrointestinal symptoms, my informal interpretation of his CTA of his head and neck shows no evidence of dissection or vascular compromise prior to radiology read. upon repeat evaluation patient did not have any improvement in his subjective symptoms after initial intervention however he then informed me that he has an MRI scheduled tomorrow for this exact same complaint for which she saw his PCP for for already.. Given this patient is appropriate for discharge with follow-up with his PCP after he has his MRI tomorrow for recheck. And while there remains diagnostic uncertainty at the root cause of his problem we have ascertained that he has no vascular compromise and likely represents soft tissue injury and MRI is the appropriate study in that context. Patient advised if he has any new or worsening signs or symptoms to return to the ER as needed. I was consulted by the MAHNAZ, and we discussed the complexity of the problems being addressed. I approved the treatment and management plan for this patient's care in the Emergency Department, thus performing a substantive portion of the medical decision making. Cecilio Ace MD Critical Care <LOULOU Lim - Last Filed: 11/16/24 20:30> Critical Care Time Critical Care Time: No
--- NOTE | 2024-11-16 13:54 | CT_ITS ---
FINAL REPORT TECHNIQUE: Thin-section axial CT with IV contrast supplemented with multi planar reconstruction under CT angiogram protocol was performed of the neck. This study was performed technique to keep radiation doses as low as reasonably achievable, (ALARA). NASCET criteria was utilized during interpretation. CLINICAL HISTORY: Head and neck pain after chiropractor COMPARISON: 05/28/2023 FINDINGS: Aortic arch: Arch shows no significant narrowing. Great vessel origins are widely patent. Right carotid: No significant stenosis is seen at the cervical common or internal carotid artery. Left carotid: No significant stenosis is seen at the cervical common or internal carotid artery. Vertebrals: Left vertebral artery is slightly dominant. No significant stenosis is present. IMPRESSION: No evidence of significant stenosis or major branch occlusion. Reviewed, Interpreted and Dictated by Breanna Denney MD Transcribed by Carina Carrion Authenticated and [facility]
--- NOTE | 2024-11-16 13:54 | CT_ITS ---
FINAL REPORT TECHNIQUE: Thin section axial images are obtained through the brain after intravenous contrast injection. Multiplanar reconstructions were obtained from the axial data. Exam was performed using dose reduction techniques such as automated exposure control, adjustment of the mA and kV according to patient size, and use of iterative reconstruction technique. CLINICAL HISTORY: Head and neck pain after chiropractor COMPARISON: 05/28/2023 FINDINGS: The intracerebral portions of the carotid arteries are patent. The anterior and middle cerebral arteries are patent. The posterior cerebral arteries arise from the basilar artery. They are patent. [place] is intact. The basilar artery is patent. The vertebral arteries are patent. There is no significant stenosis, aneurysm, or AVM. IMPRESSION: Unremarkable CT angiogram of the intracerebral vasculature. Reviewed, Interpreted and Dictated by Breanna Denney MD Transcribed by Carina Carrion Authenticated and [facility]
[2024-11-16 14:01] LABS: Basophils % 0.4 % (0.1-2.0); Eosinophils % 0.1 % (0.1-12.0); Hematocrit 47.4 % (42.0-52.0); Hemoglobin 16.6 g/dL (14.1-18.0); Lymphocytes % 8.7 % (10-50); Mean Corpuscular Hemoglobin 29.9 pg (27.0-31.2); Mean Corpuscular Volume 85.4 fl (80-94); Monocytes # 1.1 K/mm3 (0.1-1.0); Monocytes % 9.6 % (1.7-9.3); Neutrophils # 9.2 K/mm3 (1.8-7.8); Neutrophils % 80.7 % (37.0-80.0); Platelet Count 351 K/mm3 (142-424); Red Blood Count 5.55 M/mm3 (4.60-6.20); Red Cell Distribution Width 12.9 % (11.5-17.5); White Blood Count 11.4 K/mm3 (4.8-10.8)
[2024-11-16 14:11] LABS: Albumin Level 5.1 g/dl (3.5-5.0); Chloride 98 mmol/L (98-107); Sodium 135 mmol/L (136-145)
[2024-11-16 14:12] LABS: Potassium 3.7 mmoL/L (3.5-5.1)
[2024-11-16 14:13] LABS: INR 0.98 (0.9-1.1)
[2024-11-16 14:14] LABS: Alanine Aminotransferase 132 U/L (12-78); Albumin/Globulin Ratio 1.8 (1.1-1.8); Alkaline Phosphatase 148 U/L (38-126); Anion Gap 14.7 mEq/L (5-15); Aspartate Amino Transferase 61 U/L (17-59); Bilirubin,Total 0.7 mg/dl (0.2-1.3); Blood Urea Nitrogen 12 mg/dl (9-20); Calcium 9.1 mg/dl (8.4-10.2); Carbon Dioxide 26 mmol/L (22.0-30.0); Creatinine Clearance Estimated 98 mL/min (50-200); Estimated Glomerular Filt Rate 74 ml/min (>60); GFR (African American) 90 ML/MIN (>60); Globulin 2.9 g/dL (1.3-3.2); Glucose 272 mg/dl (74-100)
[2024-11-16] MEDS: SODIUM CHLORIDE 0.9% 10ML SYR (RAD ONLY) 10 ML IV (14:47)
[2024-11-16] MEDS: 0.9 % SODIUM CHLORIDE 50 ML VIAL IV (14:47)
[2024-11-16] MEDS: IOPAMIDOL-370 (76%);100ML BOTTLE 80 ML IV (14:47)
--- NOTE | 2024-11-16 16:13 | PC.NURSE ---
Patients UA was sent. Patient was also given a blanket.
--- NOTE | 2024-11-16 16:30 | PC.NURSE ---
CALL LIGHT IS WITHIN REACH OF THE PT. THE PT VOICES THAT HE DOES NOT NEED ANYTHING AT THIS TIME. CALL LIGHT IS WITHIN REACH OF THE PT.
--- NOTE | 2024-11-16 17:33 | PC.NURSE ---
ROUNDED ON THE PT. THE PT VOICES THAT HE DOES NOT NEED ANYTHING AT THIS TIME. CALL LIGHT IS WITHIN REACH OF THE PT.
== END 2024-11-16 17:53 | disposition home or self-care (01) ==
PROVIDERS: Physician Assistant; Emergency Provider Emergency Medicine; PCP Internal Medicine Adolescent Medicine
DX: M54.2 Cervicalgia (principal); R51.9 Headache, unspecified; R63.8 Other symptoms and signs concerning food and fluid intake
CPT/HCPCS: 70496; 70498; 80053; 85025; 85610; 99285; Q9967

== ENCOUNTER 2024-11-17 12:35 | Outpatient (CLI) | payer MEDICARE, SELFPAY ==
--- NOTE | 2024-11-17 12:40 | MR_ITS ---
FINAL REPORT TECHNIQUE: Multiplanar MR without contrast CLINICAL HISTORY: ARTHRITIS/DDD/CERVICALGIA. NECK PAIN FINDINGS: Limited images of the posterior fossa are unremarkable. Alignment is normal. Cervical spinal cord shows normal signal and contour. C2-3: Unremarkable C3-4: Moderate annular disc bulge and facet arthropathy. Mild central canal stenosis and moderate neuroforaminal narrowing. C4-5: Small central disc protrusion without canal stenosis. C5-6: Mild annular disc bulge and facet arthropathy. C6-7: Mild annular disc bulge without facet arthropathy. C7-T1: Mild annular disc bulge without facet arthropathy. IMPRESSION: Degenerative changes, most pronounced at C3-4 as above. Reviewed, Interpreted and Dictated by Sara Pineda MD Transcribed by Mahi Braun Authenticated and [facility]
== END 2024-11-17 23:59 | disposition home or self-care (01) ==
LOC: RAD 12:35
PROVIDERS: PCP Internal Medicine Adolescent Medicine; Visit Provider Internal Medicine Adolescent Medicine
DX: M50.30 Other cervical disc degeneration, unspecified cervical region (principal); M12.9 Arthropathy, unspecified
CPT/HCPCS: 72141

== ENCOUNTER 2024-11-28 08:38 | Outpatient (POV) | payer MEDICARE, SELFPAY ==
[2024-11-28 08:44] VITALS: BP 166/96; PULSE 71; RESP 16; O2SAT 97; BMI 29.9
--- NOTE | 2024-11-28 09:32 | A.OFFVIS_ITS ---
HPI Data of Consult Patient: new to practice Consult date: 11/28/24 Requesting Physician: Judit Blackwell APRN Primary Care Provider: Andrzej Munroe MD Consult Narrative Reason for consult: Neck pain, shoulder pain History of present illness: Mr. Jolley is a 69 year old male who presents today as a new patient. He is a referral from Dr. Munroe's office. Today he rates his pain a 5 out of 10. Patient states that he has had neck pain for 2 to 3 months unrelated to any specific injury however states that he had been mowing and slipped and felt like this is when his pain really started. Patient did describe the pain as an overall soreness into his muscles around his neck and shoulders stating that the right side is worse than the left. He states the pain is interfering with his ability perform activities of daily living such as cooking and cleaning. Patient also states he has difficulty turning his head [id number] with limited movement. Patient states he has tried oral medications, heat and ice, topicals, at home stretching exercise for longer than 12 weeks with no additional improvement. Patient is interested in any help we may be able to provide. CC: Judit Blackwell APRN [facility] Disclaimer: The information contained in this section may have been updated after the patient was seen, as this information can be updated by other users. Medical History Hypertension Surgical History No significant past surgical history Family History Other Cancer Coronary artery disease Hypertension Social History Smoking Status: Never smoker second hand exposure: No alcohol intake: former substance use type: denies use current occupational status: other Travel in the last 8 weeks: None household members: other housing: house marital status: Review of Systems Review of Systems Review of systems:: pertinent systems reviewed and negative unless documented below Review of systems (narrative): Review of Systems: General: No recent weight changes, no fever, no sleep disturbances Respiratory: No cough, no shortness of air, no recurring pulmonary infections Cardiovascular/peripheral vascular: No chest pain, no palpitations, no edema, no shortness of breath Gastrointestinal: No new onset incontinence, normal bowel movements reported Genitourinary: No new onset incontinence Musculoskeletal: Neck pain, shoulder pain Psychiatric: [Normal mood/affect] Neurological: [Denies weakness in extremities], [denies balance issues] Meds Home Medications and Allergies Home Medications ?Medication ?Instructions ?Recorded ?Confirmed ?Type amlodipine 10 mg tablet 10 mg PO DAILY High Blood Pressure 06/29/20 11/28/24 History metoprolol succinate 100 mg 100 mg PO DAILY High Blood Pressure 05/28/23 11/28/24 History tablet,extended release 24 hr allopurinol 100 mg tablet 100 mg PO DAILY #30 tabs 09/22/24 11/28/24 Rx methocarbamol 750 mg tablet 750 mg PO Q6H PRN muscle spasm #20 11/16/24 11/28/24 Rx tabs ondansetron 4 mg disintegrating 4 mg PO QID PRN nausea and 11/16/24 11/28/24 Rx tablet vomiting #10 tabs New Prescriptions to Start Prescriptions: Allergies Allergy/AdvReac Type Severity Reaction Status Date / Time No Known Allergies Allergy Verified 09/22/24 11:11 Objective Vital signs: Pulse Resp BP Pulse Ox O2 Del Method 71 16 166/96 H 97 Room Air 11/28/24 08:44 11/28/24 08:44 11/28/24 08:44 11/28/24 08:44 11/28/24 08:44 Narrative: Physical Exam: General: Alert and oriented x3, no acute distress, pleasant and cooperative Lungs: Respirations even and unlabored, symmetrical chest expansion Eyes: PERRL Musculoskeletal: Flexion and extension of cervical [spine] somewhat guarded secondary to pain, [antalgic gait noted] point tenderness along bilateral cervical paraspinous muscles and bilateral trapezius muscles Neurological: Speech clear, no gross sensory deficit Additional findings Additional findings: FINDINGS: Limited images of the posterior fossa are unremarkable. Alignment is normal. Cervical spinal cord shows normal signal and contour. C2-3: Unremarkable C3-4: Moderate annular disc bulge and facet arthropathy. Mild central canal stenosis and moderate neuroforaminal narrowing. C4-5: Small central disc protrusion without canal stenosis. C5-6: Mild annular disc bulge and facet arthropathy. C6-7: Mild annular disc bulge without facet arthropathy. C7-T1: Mild annular disc bulge without facet arthropathy. IMPRESSION: Degenerative changes, most pronounced at C3-4 as above. Reviewed, Interpreted and Dictated by Sara Pineda MD Transcribed by Mahi Braun Authenticated and [facility] Assessment and Plan *Assessment and plan (1) Myofascial pain: Status: Acute Category: Medical Code(s): M79.18 - Myalgia, other site (2) Degenerative disc disease, cervical: Status: Acute Category: Medical Code(s): M50.30 - Other cervical disc degeneration, unspecified cervical region (3) Facet arthropathy, cervical: Status: Acute Category: Medical Code(s): M47.812 - Spondylosis without myelopathy or radiculopathy, cervical region Plan Patient is experiencing significant pain in his neck that does radiate down into his shoulders with point tenderness at his bilateral cervical paraspinous and bilateral trapezius muscles. Patient was counseled that he may benefit from trigger point injections at these locations. Risk and benefits were discussed with the patient and he would like to proceed forward with this plan of care. Patient has tried and failed conservative therapy including oral medications, heat and ice, topicals, at home stretching exercise for longer than 12 weeks. Patient has had this pain for longer than 3 months. I will also order the patient a compounded cream. Patient will be scheduled for trigger point injections of his bilateral cervical paraspinous and bilateral trapezius muscles. These will be done without fluoroscopic guidance or ultrasound. Patient has been instructed to contact the clinic with any concerns before the next appointment. Dr. Olson has reviewed this note and agrees with this plan of care. This note was dictated using voice recognition software and make contain errors or omissions. All injections are used with Lidocaine, Bupivacaine and Depo Medrol. Occasionally urine drug screen is needed to verify patient's compliance with our office pain contract. This is ordered based off specific treatments related to chronic pain with the potential to abuse certain medications.
== END 2024-11-28 23:59 | disposition home or self-care (01) ==
LOC: SC.PAIN 08:39
PROVIDERS: PCP Internal Medicine Adolescent Medicine; Visit Provider Nurse Practitioner Family
DX: M79.18 Myalgia, other site (principal); M50.30 Other cervical disc degeneration, unspecified cervical region; M47.812 Spondylosis without myelopathy or radiculopathy, cervical region; Z73.89 Other problems related to life management difficulty
CPT/HCPCS: 99202; G0463

== ENCOUNTER 2024-12-02 12:18 | Emergency (ER) | payer MEDICARE, SELFPAY ==
[2024-12-02 12:29] VITALS: BP 155/92; PULSE 86; RESP 18; TEMP 36.8; O2SAT 98; BMI 29.9
[2024-12-02 12:36] VITALS: BP 164/90; PULSE 84; O2SAT 98
--- NOTE | 2024-12-02 12:38 | PC.NURSE ---
ME BETZY NP AT BEDSIDE
--- NOTE | 2024-12-02 12:53 | ED_ITS ---
<Statement entered by Judit Gil DO - 12/02/24 15:16> I was consulted by the MAHNAZ, and we discussed the complexity of the problems being addressed. I approved the treatment and management plan for this patient's care in the emergency department, thus performing a substantive portion of the medical decision making. Judit Gil DO Discharge Plan Disposition Patient Disposition: Home, Self-Care Condition: Good Prescriptions Prescriptions: New methocarbamol 500 mg tablet 500 mg PO TID Qty: 90 0RF lidocaine [Lidoderm] 5 % adhesive patch,medicated 1 patch topical DAILY Qty: 15 0RF Rx Instructions: leave on most painful area for up to 12 hrs No Action allopurinol 100 mg tablet 100 mg PO DAILY Qty: 30 2RF amlodipine 10 MG tablet 10 mg PO DAILY metoprolol succinate 100 mg tablet extended release 24 hr 100 mg PO DAILY venlafaxine 37.5 mg capsule,extended release 24hr 37.5 mg PO DAILY citalopram 10 mg tablet 10 mg PO DAILY mirtazapine 15 mg tablet 15 mg PO DAILY propranolol 20 mg tablet 20 mg PO DAILY rosuvastatin 10 mg tablet 10 mg PO HS Referrals Follow up/Referrals: Andrzej Munroe MD [Primary Care Provider] - See instructions Activity Restrictions/Add. Instructions Additional Instructions/Restrictions: Today your evaluated in the emergency department. Please follow-up with pain management on 12/09/2024. Please return to the ED for worsening of condition. Clinical Impressions Clinical Impression: Cervicalgia Instructions Patient Instructions: DI for Chronic Pain -- Adult Print Language Print Language: Nepalese Discharge ED Provider: Judit Gil General Adult HPI General Chief complaint: Headache Stated complaint: pain right side of neck and head Time Seen by Provider: 12/02/24 12:35 Mode of Arrival: Ambulatory Source of Information: Patient Limitations: No Limitations Description of Symptoms (Recalled from ER Triage Doc. by RN): Pt presents for evaluation of a headache that he has had 3 weeks. Pt states his headache starts to in the front of his head and radiates to the right side of his neck. Pt states he has had CT/MRI done and he had an issue with his nerves. History of Present Illness HPI narrative: patient is a 69-year-old male PMHx HTN, HLD, prediabetic, cervicalgia, gout, headaches who presents to the ED for chronic posterior neck pain. Patient states he feels as though his neck pain has been flared up for 2 to 3 weeks. Patient states he is currently with pain management and is scheduled to receive injections in his neck on 12/09/2024 for the first time. Related Data Home Medications ?Medication ?Instructions ?Recorded ?Confirmed amlodipine 10 mg tablet 10 mg PO DAILY High Blood Pressure 06/29/20 12/02/24 metoprolol succinate 100 mg 100 mg PO DAILY High Blood Pressure 05/28/23 12/02/24 tablet,extended release 24 hr citalopram 10 mg tablet 10 mg PO DAILY 12/02/24 12/02/24 mirtazapine 15 mg tablet 15 mg PO DAILY 12/02/24 12/02/24 propranolol 20 mg tablet 20 mg PO DAILY 12/02/24 12/02/24 rosuvastatin 10 mg tablet 10 mg PO HS 12/02/24 12/02/24 venlafaxine 37.5 mg 37.5 mg PO DAILY 12/02/24 12/02/24 capsule,extended release 24 hr Previous Rx's ?Medication ?Instructions ?Recorded allopurinol 100 mg tablet 100 mg PO DAILY #30 tabs 09/22/24 lidocaine 5 % topical patch 1 patch topical DAILY #15 ea 12/02/24 (Lidoderm) methocarbamol 500 mg tablet 500 mg PO TID #90 tabs 12/02/24 Allergies Allergy/AdvReac Type Severity Reaction Status Date / Time No Known Allergies Allergy Verified 12/02/24 13:43 [facility] Disclaimer: The information contained in this section may have been updated after the patient was seen, as this information can be updated by other users. Medical History Hypertension Surgical History No significant past surgical history Family History Other Cancer Coronary artery disease Hypertension Social History Smoking Status: Never smoker second hand exposure: No alcohol intake: former substance use type: denies use current occupational status: other Travel in the last 8 weeks: None household members: other housing: house marital status: Have you lived/traveled outside [place] in past 30 days?: No Contact w/someone who lives/traveled outside [place] past 30 days?: No Exposure to someone with infectious disease in past 14 days?: No Do you have a fever (greater than 100.4 F or 38 C)?: No Have you tested positive for COVID-19: No Exposed to someone with COVID-19 in past 14 days?: No Do you have a sore throat?: No Do you have a cough?: No Do you have any weakness?: No Do you have any diarrhea?: No Are you experiencing any unusual bleeding?: No Do you have any muscle aches/pain?: No Do you have any abdominal pain?: No Are you experiencing loss of taste or smell?: No Other Medical History Have you received the Flu Vaccine for this season: Yes Have you received the Pneumonia Vaccine: Yes ROS Obtained: Yes Systems reviewed as appropriate & no additional complaints except as documented Physical Exam General General appearance: alert and in no apparent distress Head Head exam: atraumatic and normocephalic Eye Eye exam: Present normal appearance and PERRL ENT ENT exam: Present normal exam Neck Neck exam: Present normal inspection, full ROM and tenderness (cervical p araspinal musculature tenderness ) Chest Chest inspection: Present normal inspection and symmetric chest wall rise; Absent tenderness Respiratory Respiratory exam: Present normal lung sounds bilaterally Cardiovascular Cardiovascular exam: Present regular rate Abdominal Exam Abdominal exam: Present soft and normal bowel sounds; Absent tenderness Extremities Exam Extremities exam: Present normal inspection and full ROM Back Exam Back exam: Present normal inspection and full ROM Neurological Exam Neurological exam: Present alert and oriented X3 Psychiatric Psychiatric exam: Present normal affect and normal mood Skin Skin exam: Present warm and dry Medical Decision Making Medical Records Screening: Per USPSTF and CDC recommendations, given the prevalence of disease in our region, it is our hospital?s policy to screen for HIV and viral Hepatitis for all patients aged 18 and over and those with ongoing risk factors. James Inquiry Pt receiving controlled substance: No James was queried for this patient: No Vital Signs: 12/02/24 12:29 12/02/24 12:36 12/02/24 13:00 Temperature 98.2 F Temperature Source Oral Pulse Rate 84 87 Pulse Rate [Right] 86 Respiratory Rate 18 Blood Pressure 164/90 H 135/77 Blood Pressure [Right Arm] 155/92 H Blood Pressure Mean [Right Arm] 113 Blood Pressure Source Blood Pressure Source [Right Arm] Automatic Cuff Blood Pressure Position Blood Pressure Position [Right Arm] Sitting 02 Sat by Pulse Oximetry 98 98 97 Oxygen Delivery Method Room Air Room Air Room Air 12/02/24 13:30 12/02/24 14:00 12/02/24 14:25 Temperature 98.0 F Temperature Source Oral Pulse Rate 79 79 80 Pulse Rate [Right] Respiratory Rate 18 Blood Pressure 162/83 H 155/88 H 155/88 H Blood Pressure [Right Arm] Blood Pressure Mean [Right Arm] Blood Pressure Source Automatic Cuff Blood Pressure Source [Right Arm] Blood Pressure Position Sitting Blood Pressure Position [Right Arm] 02 Sat by Pulse Oximetry 96 94 L Oxygen Delivery Method Room Air Room Air Room Air Orders (Tests/Meds): ED MEDICATIONS Discontinued Medications Generic Name Dose Route Start Last Admin Trade Name Luz PRN Reason Stop Dose Admin Acetaminophen 1,000 mg 12/02/24 13:14 12/02/24 13:27 Acetaminophen 500mg Tab PO 12/02/24 13:15 1,000 mg ONCE ONE Administration Ketorolac Tromethamine 15 mg 12/02/24 13:14 12/02/24 13:26 Ketorolac 30mg/Ml Vial IM 12/02/24 13:15 15 mg ONCE ONE Administration Medical Decision Narrative: In summary, patient is a 69-year-old male PMHx HTN, HLD, prediabetic, cervicalgia, gout, headaches who presents to the ED for chronic posterior neck pain. Patient states he feels as though his neck pain has been flared up for 2 to 3 weeks. Patient states he is currently with pain management and is scheduled to receive injections in his neck on 12/09/2024 for the first time. He denies taking anything prior to arrival. Denies any additional neurosymptoms. Denies any visual disturbances. Upon initial exam, patient is alert, oriented and cooperative. Patient is hemodynamically stable. Physical exam remarkable for cervical paraspinal musculature tenderness. Denies fever, chills, headache, vision changes, chest pain, shortness of breath, abdominal pain, nausea, vomiting, back pain, diarrhea, dysuria. Differential diagnosis includes chronic neck pain, cervicalgia, muscle spasm, among others Records reviewed, cervical spine MRI from 11/17/2024 remarkable for degenerative changes mostly pronounced at C3-C4. Head CTA from 11/16/[address] angiogram of the intracerebral vasculature. Initial inventions include multimodal pain control. I considered additional testing but deferred due to patient had a recent MRI. Upon repeat evaluation, patient had an acceptable resolution of symptoms. They were ambulatory in the ED. Able to tolerate PO. Given this, I feel the patient is appropriate to be discharged home at this time. I sent a prescription for Lidoderm and Robaxin. Discussed that he will need to keep his follow-up appointment with pain management. We discussed following up with PCP. We discussed return precautions to the ED and patient verbalized understanding. Critical Care Critical Care Time Critical Care Time: No
[2024-12-02 13:00] VITALS: BP 135/77; PULSE 87; O2SAT 97
[2024-12-02] MEDS: KETOROLAC 30MG/ML VIAL 15 MG IM (13:26)
[2024-12-02] MEDS: ACETAMINOPHEN 500MG TAB 1000 MG PO (13:27)
[2024-12-02 13:30] VITALS: BP 162/83; PULSE 79; O2SAT 96
--- NOTE | 2024-12-02 13:41 | PC.NURSE ---
ROUNDED ON PT, REPORTS FEELING BETTER. CALL LIGHT
[2024-12-02 14:00] VITALS: BP 155/88; PULSE 79; O2SAT 94
[2024-12-02 14:25] VITALS: BP 155/88; PULSE 80; RESP 18; TEMP 36.7; O2SAT 96
== END 2024-12-02 14:25 | disposition home or self-care (01) ==
PROVIDERS: Emergency Provider Emergency Medicine; PCP Internal Medicine Adolescent Medicine
DX: M54.2 Cervicalgia (principal); R51.9 Headache, unspecified
CPT/HCPCS: 96372; 99283; J1885

== ENCOUNTER 2024-12-09 10:34 | Day surgery (SDC) | payer MEDICARE, SELFPAY ==
[2024-12-09 10:37] VITALS: BP 151/85; PULSE 78; RESP 16; TEMP 36.8; O2SAT 98; BMI 30.8
--- NOTE | 2024-12-09 11:01 | EXP.PAIN.PRO ---
Procedure Date: 12/09/24 Time: 11:13 Anesthesiologist:: Judit Blackwell APRN Complications:: None Pre-procedure Diagnosis:: Neck pain pain, bilateral shoulder pain, myofascial pain of bilateral cervical paraspinous and bilateral trapezius muscles Post-procedure Diagnosis:: Same Indications for Procedure:: Patient is a pleasant 69-year-old male who presents today for trigger point injections of his bilateral cervical paraspinous and bilateral trapezius muscles. Today he rates his pain a 4. He does state it is not as much pain versus a lot of pressure and tension. He states he has difficulty turning his head [id number]. Patient does feel like it is more prominent on the left side versus the right. His James has been reviewed and is appropriate. Physical Exam: General: Alert and oriented x3, no acute distress, pleasant and cooperative Lungs: Respirations even and unlabored, symmetrical chest expansion Eyes: PERRL Musculoskeletal: Flexion and extension of cervical [spine] somewhat guarded secondary to pain, [antalgic gait noted] Neurological: Speech clear, no gross sensory deficit Procedure Details:: Patient did have noninvasive blood pressure cuff applied and pulse oximeter. Patient was placed in a sitting position and palpated along his bilateral cervical paraspinous and trapezius muscles. Areas of point tenderness were marked and using a sterile 25-gauge needle approximately 10 mL of 0.25% bupivacaine, 1% lidocaine and 80 mg Depo-Medrol were incrementally injected into his bilateral cervical paraspinous and trapezius muscles. Needle was removed and sterile bandages applied. Patient tolerated the procedure well with no complications and was discharged neurologically intact. Plan and Disposition:: Patient tolerated the procedure well with no complications and was discharged neurologically intact. He did state that the pain after doing the injections that he already felt like there was significant improvement. He states when he turns his head [id number] that there tension that was previously that here is not and he feels like the movements are a lot easier. I did discuss with him in future he may benefit from cervical facet injections as well. We will follow-up with this at his upcoming appointment. Patient agrees with this plan of care. Patient will return to clinic in 2 weeks. Patient has been instructed to contact the clinic with any concerns before the next appointment. Dr. Olson has reviewed this note and agrees with this plan of care. This note was dictated using voice recognition software and make contain errors or omissions. All injections are used with Lidocaine, Bupivacaine and Depo Medrol. Occasionally urine drug screen is needed to verify patient's compliance with our office pain contract. This is ordered based off specific treatments related to chronic pain with the potential to abuse certain medications.
[2024-12-09] MEDS: LIDOCAINE 1% 5ML PF VIAL 5 ML (11:06)
[2024-12-09] MEDS: BUPIVACAINE 0.25% 10ML INJ 25 MG IJ (11:06)
[2024-12-09 11:07] VITALS: BP 155/90; PULSE 73; RESP 18; O2SAT 98
[2024-12-09] MEDS: methylPREDNISolone ACETATE 80MG/ML VIAL 80 MG (11:07)
[2024-12-09 11:09] VITALS: BP 155/90; PULSE 72; RESP 18; O2SAT 98
[2024-12-09 11:18] VITALS: BP 167/89; PULSE 78; RESP 16; O2SAT 98
== END 2024-12-09 11:18 | disposition home or self-care (01) ==
PROVIDERS: PCP Internal Medicine Adolescent Medicine; Visit Provider Nurse Practitioner Family
DX: M79.18 Myalgia, other site (principal); M54.2 Cervicalgia; M25.511 Pain in right shoulder; M25.512 Pain in left shoulder
CPT/HCPCS: 20553; J1010

== ENCOUNTER 2024-12-23 13:42 | Outpatient (POV) | payer MEDICARE, SELFPAY ==
[2024-12-23 13:53] VITALS: BP 151/82; PULSE 96; RESP 14; O2SAT 96; BMI 29.9
--- NOTE | 2024-12-23 14:25 | A.OFFVIS_ITS ---
[facility] Disclaimer: The information contained in this section may have been updated after the patient was seen, as this information can be updated by other users. Medical History Hypertension Surgical History No significant past surgical history Family History Other Cancer Coronary artery disease Hypertension Social History Smoking Status: Never smoker second hand exposure: No alcohol intake: former substance use type: denies use current occupational status: other Travel in the last 8 weeks: None household members: other housing: house marital status: PM Subjective & Objective Subjective Subjective:: Patient is a pleasant 69-year-old male who presents today for follow-up of his trigger point injections of his bilateral cervical paraspinous and bilateral trapezius on 12/09/2024. Today he rates his pain a 2 out of 10. He does state he has had at least 50% improvement following these injection and feels like it is still working well. He does state that he is still having some pain with moving his head [id number] but it is better. Patient is going to chiropractor therapy for his low back symptoms and he does state that this helps however he just feels like overall when he gets up in the morning he has a lot of stiffness in multiple joints. Patient denies any heart or kidney issues. His James has been reviewed and is appropriate. Review of Systems: General: No recent weight changes, no fever, no sleep disturbances Respiratory: No cough, no shortness of air, no recurring pulmonary infections Cardiovascular/peripheral vascular: No chest pain, no palpitations, no edema, no shortness of breath Gastrointestinal: No new onset incontinence, normal bowel movements reported Genitourinary: No new onset incontinence Musculoskeletal: Low back pain, neck pain Psychiatric: [Normal mood/affect] Neurological: [Denies weakness in extremities], [denies balance issues] Pain at rest (0-10 scale): 2 Objective Objective:: Physical Exam: General: Alert and oriented x3, no acute distress, pleasant and cooperative Lungs: Respirations even and unlabored, symmetrical chest expansion Eyes: PERRL Musculoskeletal: Flexion and extension of cervical [spine] somewhat guarded secondary to pain, [antalgic gait noted] positive Kemps test Neurological: Speech clear, no gross sensory deficit Has patient had previous pain injection?: Yes Percent improvement in pain since last injection: 50% Conservative treatment options previously tried: Home exercise plan Length of treatment: Longer than 12 weeks and Chiropractor Length of treatment: Ongoing Meds Home Medications and Allergies Home Medications ?Medication ?Instructions ?Recorded ?Confirmed ?Type amlodipine 10 mg tablet 10 mg PO DAILY High Blood Pressure 06/29/20 12/23/24 History metoprolol succinate 100 mg 100 mg PO DAILY High Blood Pressure 05/28/23 12/23/24 History tablet,extended release 24 hr allopurinol 100 mg tablet 100 mg PO DAILY #30 tabs 09/22/24 12/23/24 Rx citalopram 10 mg tablet 10 mg PO DAILY 12/02/24 12/23/24 History lidocaine 5 % topical patch 1 patch topical DAILY #15 ea 12/02/24 12/23/24 Rx (Lidoderm) methocarbamol 500 mg tablet 500 mg PO TID #90 tabs 12/02/24 12/23/24 Rx mirtazapine 15 mg tablet 15 mg PO DAILY 12/02/24 12/23/24 History propranolol 20 mg tablet 20 mg PO DAILY 12/02/24 12/23/24 History rosuvastatin 10 mg tablet 10 mg PO HS 12/02/24 12/23/24 History venlafaxine 37.5 mg 37.5 mg PO DAILY 12/02/24 12/23/24 History capsule,extended release 24 hr diclofenac sodium 50 mg 50 mg PO BID #28 tabs 12/23/24 Rx tablet,delayed release New Prescriptions to Start Prescriptions: diclofenac sodium Judit Blackwell Allergies Allergy/AdvReac Type Severity Reaction Status Date / Time No Known Allergies Allergy Verified 12/02/24 13:43 Assessment and Plan *Assessment and plan (1) Degenerative disc disease, cervical: Status: Acute Category: Medical Code(s): M50.30 - Other cervical disc degeneration, unspecified cervical region (2) Facet arthropathy, cervical: Status: Acute Category: Medical Code(s): M47.812 - Spondylosis without myelopathy or radiculopathy, cervical region (3) Myofascial pain: Status: Acute Category: Medical Code(s): M79.18 - Myalgia, other site (4) Generalized joint pain: Status: Acute Category: Medical Code(s): M25.50 - Pain in unspecified joint Plan I did discuss with the patient that if his pain continues to worsen there in his neck with limited range of motion that he is a potential candidate of a cervical medial branch block. He did have limited range of motion during today's visit and a positive Kemps test. We will follow-up with this in future. Patient was counseled that a daily anti-inflammatory may also help with the joint stiffness. Patient denied any heart or kidney issues. I will send in a 2-week dose of diclofenac 50 mg twice daily. Patient was counseled to take this with food to minimize GI upset and to discontinue all other NSAIDs while taking this medication. Patient will return to clinic in 2 weeks. Patient has been instructed to contact the clinic with any concerns before the next appointment. Dr. Olson has reviewed this note and agrees with this plan of care. This note was dictated using voice recognition software and make contain errors or omissions. All injections are used with Lidocaine, Bupivacaine and Depo Medrol. Occasionally urine drug screen is needed to verify patient's compliance with our office pain contract. This is ordered based off specific treatments related to chronic pain with the potential to abuse certain medications.
== END 2024-12-23 23:59 | disposition home or self-care (01) ==
PROVIDERS: PCP Internal Medicine Adolescent Medicine; Visit Provider Nurse Practitioner Family
DX: M50.30 Other cervical disc degeneration, unspecified cervical region (principal); M47.812 Spondylosis without myelopathy or radiculopathy, cervical region; M79.18 Myalgia, other site; M25.50 Pain in unspecified joint
CPT/HCPCS: 99212; G0463

== ENCOUNTER 2025-01-05 09:20 | Outpatient (POV) | payer MEDICARE, SELFPAY ==
[2025-01-05 09:35] VITALS: BP 124/78; PULSE 70; RESP 14; O2SAT 97; BMI 31.4
--- NOTE | 2025-01-05 10:10 | EXP.PAIN.SOA ---
[facility] Disclaimer: The information contained in this section may have been updated after the patient was seen, as this information can be updated by other users. Medical History Dizziness Bilateral tinnitus Hypertension Surgical History No significant past surgical history Family History Other Cancer Coronary artery disease Hypertension Social History Smoking Status: Never smoker second hand exposure: No alcohol intake: former substance use type: denies use current occupational status: other Travel in the last 8 weeks: None household members: other housing: house marital status: PM Subjective & Objective Subjective Subjective:: Patient is a pleasant 69-year-old male who presents today for worsening low back pain. He does rate that pain a 5 out of 10. He states the pain is now going into both his lower legs all the way to the feet. He states that is worse with increased activity or ambulation. He does state that pain is interfering with his ability to perform activities of daily living such as cooking and cleaning. Patient states that his neck has still been doing wonderful and states that pain is a 0 out of 10. Patient does state that the diclofenac 50 mg twice a day that we prescribed at his last visit does seem like it is helping. Patient does state he is interested in injection therapy for the low back symptoms because it is so severe. He does state all of this was from an injury he suffered longer than a year ago where he was doing a push mower and ended up falling and causing worsening pain into his low back and legs. He states it did get better however does seem like now its gotten more aggravated. His James has been reviewed and is appropriate. Review of Systems: General: No recent weight changes, no fever, no sleep disturbances Respiratory: No cough, no shortness of air, no recurring pulmonary infections Cardiovascular/peripheral vascular: No chest pain, no palpitations, no edema, no shortness of breath Gastrointestinal: No new onset incontinence, normal bowel movements reported Genitourinary: No new onset incontinence Musculoskeletal: Low back pain, bilateral leg pain Psychiatric: [Normal mood/affect] Neurological: [Denies weakness in extremities], [denies balance issues] Pain at rest (0-10 scale): 5 Objective Objective:: Physical Exam: General: Alert and oriented x3, no acute distress, pleasant and cooperative Lungs: Respirations even and unlabored, symmetrical chest expansion Eyes: PERRL Musculoskeletal: Flexion and extension of lumbar [spine] somewhat guarded secondary to pain, [antalgic gait noted] positive leg raise Neurological: Speech clear, no gross sensory deficit Has patient had previous pain injection?: No Conservative treatment options previously tried: Home exercise plan Length of treatment: Longer than 12 weeks Meds Home Medications and Allergies Home Medications ?Medication ?Instructions ?Recorded ?Confirmed ?Type rosuvastatin 10 mg tablet 10 mg PO HS 12/02/24 01/05/25 History allopurinol 100 mg tablet 100 mg PO DAILY PRN Gout 12/29/24 01/05/25 History fluticasone propionate 50 1 spray intranasal BID 12/29/24 01/05/25 History mcg/actuation nasal spray,suspension amlodipine 10 mg tablet 20 mg PO DAILY High Blood Pressure 12/30/24 01/05/25 History diclofenac sodium 50 mg 50 mg PO BID 12/30/24 01/05/25 History tablet,delayed release empagliflozin 10 mg tablet 10 mg PO DAILY #30 tabs 12/30/24 01/05/25 Rx (Jardiance) prednisone 20 mg tablet 20 mg PO BID #14 tabs 12/30/24 01/05/25 Rx New Prescriptions to Start Prescriptions: Allergies Allergy/AdvReac Type Severity Reaction Status Date / Time No Known Allergies Allergy Verified 12/30/24 09:04 Assessment and Plan *Assessment and plan (1) Degenerative disc disease: Status: Acute Category: Medical (2) Lumbar radiculopathy: Status: Acute Category: Medical Code(s): M54.16 - Radiculopathy, lumbar region (3) Lumbar nerve root impingement: Status: Acute Category: Medical Code(s): M54.16 - Radiculopathy, lumbar region Plan FINDINGS: Multiplanar MR imaging of the lumbar spine was performed without contrast. On the sagittal T2-weighted images, disc degeneration is seen at multiple levels. There is mild anterolisthesis of L5 on S1. There is no evidence of fracture. Several hemangiomas are present. The conus has an unremarkable appearance. L1-2: An annular bulge is present. There is no significant canal stenosis or neural foraminal narrowing. L2-3: An annular bulge is present. A left posterolateral disc protrusion is present. There is moderate bilateral neural foraminal narrowing. L3-4: An annular bulge is present. Vertebral osteophytes are present. Moderate bilateral neural foraminal narrowing is seen. L4-5: An annular bulge is present. A small central disc protrusion mildly indents the thecal sac and contacts the L5 nerve roots. There is moderate bilateral neural foraminal narrowing. L5-S1: An annular bulge is present. Vertebral osteophytes and bilateral facet arthropathy are present. There is severe left greater than right neural foraminal narrowing. Note is made of spurring at the SI joints. IMPRESSION: Multilevel degenerative disc disease and spondylosis as described. Small central L4-5 disc protrusion which contacts the L5 nerve roots. Authenticated and ERN Patient is experiencing worsening pain in his low back with numbness and tingling into her lower extremities. Patient did have limited range of motion of his lumbar spine with a positive leg raise. I did discuss with patient that I do believe they would benefit from a lumbar epidural steroid injection. Risk and benefits were discussed with patient and the patient would like to proceed forward with this plan of care. Patient is is not on any blood thinner. Patient has tried and failed conservative therapy including continued at home stretching exercise for longer than 12 weeks between injections. Patient has had this pain for longer than a year. His last imaging did show nerve root impingement at the L4-L5 level. I will refill the patient's diclofenac. We will schedule the patient for an LESI L4-L5 under fluoroscopy. Patient has been instructed to contact the clinic with any concerns before the next appointment. Dr. Olson has reviewed this note and agrees with this plan of care. This note was dictated using voice recognition software and make contain errors or omissions. All injections are used with Lidocaine, Bupivacaine and Depo Medrol. Occasionally urine drug screen is needed to verify patient's compliance with our office pain contract. This is ordered based off specific treatments related to chronic pain with the potential to abuse certain medications.
== END 2025-01-05 23:59 | disposition home or self-care (01) ==
PROVIDERS: PCP Internal Medicine Adolescent Medicine; Visit Provider Nurse Practitioner Family
DX: M51.16 Intervertebral disc disorders with radiculopathy, lumbar region (principal); Z73.89 Other problems related to life management difficulty
CPT/HCPCS: 99212; G0463

== ENCOUNTER 2025-01-18 12:25 | Outpatient (CLI) | payer MEDICARE, SELFPAY ==
--- OUTSIDE RECORDS SUMMARY | 2025-01-18 12:28 | XMS_ITS ---
Author Organization Unknown Medications Date Medication Dosage DosageUnit StartDate StopDate StopReason Active DoseQuantity DoseUnit Dispense DispenseUnit Refills NdcCode DrugCode PharmacyId IsPrescription MappedMedication Srcstatus 03/07 00:00 :00 Medrol 04/11/2011 00:00:00 1 1 0 Start
--- NOTE | 2025-01-18 12:52 | CA_ITS ---
APPROVED REPORT EXAM: Comprehensive 2D, Doppler, and color-flow Echocardiogram Manager Care: Bev Cosme CRT Ht: 5 ft 11 in Wt: 222lbs BSA: 2.20 BP: 159/98 mmHg Indications: Shortness of Breath 2D Dimensions LA Volume 43.70 mL LA Volume Index 19.30 mL/m2 (M/F) 16-34 M-Mode Dimensions RVDd 2.32 cm (0.9-2.6) LA Diam 2.65 cm (1.9-4.0) LVDd 4.61 cm (3.5-5.7) LVDs 3.61 cm (3.5-5.7) IVSd 0.95 cm (0.6-1.1) PWd 1.13 cm (0.6-1.1) EF (Teich) 44.00% FS 21.70% EDV (Teich) 97.80 mL TAPSE 1.52 (<1.7) ESV (Teich) 54.80 mL LV Diastology E Decel Time 150 (160-240 msec) E/A Ratio 1.00 MED A' 8.10 cm/s LAT A' 11.00 cm/s Aortic Valve AI PHT 544.00 ms AO Peak GR. 5.80 mmHg Mitral Valve MV A Velocity 87.0 (40-130 cm/s) E/A Ratio 1.00 Pulmonary Valve PV Peak Velocity 122.0 (50-150 cm/s) Tricuspid Valve TR P. Velocity 214.00 cm/s RAP Estimate 10.00 mmHg RVSP 28.40 mmHg Left Ventricle The left ventricle is normal size. The left ventricular systolic function is normal. The left ventricular ejection fraction is within the normal range. There is increased overall thickness. There is normal LV segmental wall motion. The left ventricular diastolic function is normal. LVEF is 55%. Right Ventricle Right ventricle is mildly dilated. The right ventricular systolic function is normal. Atria The left atrium size is normal. The right atrium size is normal. There is no Doppler evidence of interatrial shunt. Aortic Valve The aortic valve is mildly thickened. Mild aortic regurgitation. There is no aortic valvular stenosis. Mitral Valve The mitral valve is normal in structure. No evidence of mitral valve stenosis. Trace mitral regurgitation. Tricuspid Valve Tricuspid valve is grossly normal in structure and function. Trace tricuspid regurgitation. There is insufficient TR jet to estimate RVSP. Pulmonic Valve The pulmonary valve is normal in structure. Trace pulmonic regurgitation. Great Vessels The aortic root is normal in size. IVC is normal in size and collapses >50% with inspiration. Pericardium There is no pericardial effusion. Other Information Study Quality: Fair Conclusion Normal biventricular systolic function. Mild RV dilation. Mild AI. Electronically signed by : Quynh Pérez MD 01/21/2025 20:45:52
== END 2025-01-18 23:59 | disposition home or self-care (01) ==
LOC: RT 12:26
PROVIDERS: PCP Nurse Practitioner Family; Visit Provider Nurse Practitioner Family
DX: I51.7 Cardiomegaly (principal); I35.1 Nonrheumatic aortic (valve) insufficiency; R06.09 Other forms of dyspnea
CPT/HCPCS: 93306

== ENCOUNTER 2025-01-31 13:32 | Day surgery (SDC) | payer MEDICARE, SELFPAY ==
[2025-01-31 13:40] VITALS: BP 137/80; PULSE 75; RESP 16; TEMP 36.6; O2SAT 98; BMI 31.4
[2025-01-31] MEDS: DEXAMETHASONE 10MG/ML 1ML VIAL 10 MG (13:53)
[2025-01-31 13:54] VITALS: BP 152/90; PULSE 76; RESP 18; O2SAT 96
[2025-01-31 13:55] VITALS: BP 152/90; PULSE 76; RESP 18; O2SAT 96
--- NOTE | 2025-01-31 14:08 | EXP.PAIN.PRO ---
Procedure Date: 01/31/25 Time: 14:00 Anesthesiologist:: Bacilio Monk CRNA Complications:: None Pre-procedure Diagnosis:: Degenerative disc lumbar spine multilevels. Lumbar radiculopathy. Post-procedure Diagnosis:: Same Indications for Procedure:: Patient is a very pleasant 69-year-old male who comes our clinic today for lumbar epidural steroid injections L4-5 level. Patient describes low lumbar back pain as well as bilateral hip and leg radicular symptoms. He rates his pain 7/10. Procedure Details:: Procedure: Lumbar epidural steroid injection under fluoroscopy Informed consent was obtained and the risks and benefits of the procedure were explained to the patient. The patient was taken to the procedure room and noninvasive monitors placed, including noninvasive blood pressure cuff and pulse oximeter. The back was viewed using C-arm Fluoroscopy and prepped using Chloraprep as a cleansing solution and the L4-L5 interspace was palpated. Skin and subcutaneous tissues were anesthetized using lidocaine 1.5% and a 25-gauge needle. After this, an 18-gauge Touhy epidural needle was placed into the L4-L5 interspace and advanced using fluoroscopic guidance and loss of resistance to air until the epidural space was encountered. After confirmation of needle placement in the epidural space, with dye, a solution containing normal saline, 3 mL and Depo-Medrol 80 mg were incrementally injected into the lumbar epidural space. The patient tolerated the procedure well with no complications. The patient was observed in the Pain Clinic and then discharged home neurologically intact. Plan and Disposition:: Patient was discharged without incident.
[2025-01-31 14:14] VITALS: BP 131/78; PULSE 70; RESP 16; O2SAT 99
== END 2025-01-31 14:14 | disposition home or self-care (01) ==
PROVIDERS: PCP Internal Medicine Adolescent Medicine; Visit Provider Nurse Anesthetist, Certified Registered
DX: M51.16 Intervertebral disc disorders with radiculopathy, lumbar region (principal)
CPT/HCPCS: 62323; J1100

== ENCOUNTER 2025-02-16 10:43 | Outpatient (POV) | payer MEDICARE, SELFPAY ==
[2025-02-16 10:56] VITALS: BP 145/82; PULSE 73; RESP 18; O2SAT 99; BMI 31.4
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
== END 2025-02-16 23:59 | disposition home or self-care (01) ==
PROVIDERS: PCP Internal Medicine Adolescent Medicine; Visit Provider Nurse Practitioner Family
DX: M54.16 Radiculopathy, lumbar region (principal)
CPT/HCPCS: 99212; G0463

== ENCOUNTER 2025-03-27 09:39 | Outpatient (POV) | payer MEDICARE, SELFPAY ==
--- OUTSIDE RECORDS SUMMARY | 2025-03-27 09:57 | XMS_ITS | Clinical Summary ---
Author Organization [facility] Address [address] [place] [address] Phone Care Team Providers Care Servomechanism Designer Name Role Phone Andrzej Munroe MD Primary Care Provider [phone] Melody Andrade MD Unavailable [phone] Allergies No known active allergies Medications metoprolol succinate ER (TOPROL-XL) 100 mg Oral Tablet Sustained Release 24 hr Take 100 mg by mouth daily. 11/25/2022 Active Tadalafil 20 mg Oral Tablet Take 1 Tablet by mouth daily as needed. 01/19/2023 Active amLODIPine (NORVASC) 10 mg Oral Tablet Take 10 mg by mouth daily. 01/21/2023 Active Active Problems Problem Noted Date Diagnosed Date Syncope Gout HTN (hypertension) Arthritis Surgical History Surgery Date Site/Laterality Comments CATARACT REMOVAL Left-08/2020; Right-09/2020 Medical History Medical History Date Comments Syncope 02/27/2023 Gout 02/27/2023 HTN (hypertension) 02/27/2023 Arthritis 02/27/2023 Family History Medical History Relation Name Comments Cancer Father throat Hypertension Father Diabetes Maternal Grandfather Diabetes Maternal Grandmother Diabetes Mother Relation Name Status Comments Brother x3 Alive Father Maternal Grandfather Maternal Grandmother Mother Paternal Grandfather Paternal Grandmother Sister x2 Alive Social History Tobacco Use Types Packs/Day Years Used Date Smoking Tobacco: Never Smokeless Tobacco: Never Alcohol Use Standard Drinks/Week Comments Never 0 (1 standard drink = 0.6 oz pur e alcohol) Sex and Gender Information Value Date Recorded Sex Assigned at Not on file Legal Sex Male 10:18 AM EDT Gender Identity Not on file Sexual Orientation Not on file Obstetrics History Plan of Treatment Health Maintenance Due Date Last Done Comments Wellness Exam Medicare 1958 Hepatitis C Screening 1973 DTaP/TDaP/Td (1 - Tdap) 1974 Cologuard 2000 Colon Cancer Screening 2000 Colonoscopy 2000 FIT 2000 Sigmoidoscopy 2000 Virtual Colonography 2000 Zoster (1 of 2) 2005 Pneumococcal Vaccine 50+ (2 of 2 - PCV20 or PCV21) 06/05/2021 06/05/2020 COVID-19 Vaccine (1 - season) 2024 Influenza Vaccine (Season Ended) 2025 08/21/2022, 07/09/2021, 06/05/2020, Additional history exists Hepatitis B Vaccine Aged Out No longe r eligible based on patient's age to complete this topic Meningococcal B Vaccine Aged Out No l onger eligible based on patient's age to complete this topic Insurance [employer] MEDICARE PPO MR Care Teams Servomechanism Designer Relationship Specialty Start Date End Date Andrzej Munroe MD [address] [place] [phone] PCP - General Internal Medicine-Adolescent Medicine 02/27/23 Melody Andrade MD [address] [place] [address] [place] [id number] Consulting Physician Internal Medicine - Clinical Cardiac Electrophysiology 02/27/23
--- NOTE | 2025-03-27 10:13 | EXP.PAIN.SOA ---
[facility] Disclaimer: The information contained in this section may have been updated after the patient was seen, as this information can be updated by other users. Medical History SNHL (sensorineural hearing loss) Dizziness Bilateral tinnitus Hypertension Surgical History No significant past surgical history Family History Other Cancer Coronary artery disease Hypertension Social History Smoking Status: Never smoker second hand exposure: No alcohol intake: former substance use type: denies use current occupational status: other Travel in the last 8 weeks?: None household members: other housing: house marital status: PM Subjective & Objective Subjective Subjective:: Patient is a pleasant 69-year-old male who presents today for worsening low back and hip pain. He denies any radiating symptoms down into his legs. He does rates the pain as 6 out of 10. Patient states that he had been mowing the yard and had an incident where he got to rest and ended up falling over to the side. Patient did end up going to see his chiropractor and has had adjustments however is still having worsening pain. Patient is interested in additional injections. Patient did previously have a lumbar epidural in January that did provide 70% improvement and is still not having any additional radicular symptoms. Patient does state the current pain is worse with prolonged positioning such as sitting or laying down. He states he has a lot of difficulty getting comfortable and it is interfering with his ability perform activities of daily living such as cooking and cleaning. His James has been reviewed and is appropriate. Review of Systems: General: No recent weight changes, no fever, no sleep disturbances Respiratory: No cough, no shortness of air, no recurring pulmonary infections Cardiovascular/peripheral vascular: No chest pain, no palpitations, no edema, no shortness of breath Gastrointestinal: No new onset incontinence, normal bowel movements reported Genitourinary: No new onset incontinence Musculoskeletal: Low back pain, hip pain Psychiatric: [Normal mood/affect] Neurological: [Denies weakness in extremities], [denies balance issues] Pain at rest (0-10 scale): 6 Objective Objective:: Physical Exam: General: Alert and oriented x3, no acute distress, pleasant and cooperative Lungs: Respirations even and unlabored, symmetrical chest expansion Eyes: PERRL Musculoskeletal: Flexion and extension of lumbar [spine] somewhat guarded secondary to pain, [antalgic gait noted] point tenderness along bilateral SIs with positive bilateral Jian's, Janette's, Gaenslen's, compression and distraction exam Neurological: Speech clear, no gross sensory deficit Has patient had previous pain injection?: No Conservative treatment options previously tried: Home exercise plan Length of treatment: Longer than 12 weeks and Chiropractor Length of treatment: Longer than 12-week Meds Home Medications and Allergies Home Medications ?Medication ?Instructions ?Recorded ?Confirmed ?Type fluticasone propionate 50 1 spray intranasal BID 12/29/24 02/16/25 History mcg/actuation nasal spray,suspension amlodipine 10 mg tablet 20 mg PO DAILY High Blood Pressure 12/30/24 02/16/25 History metformin 500 mg tablet 500 mg PO DAILY Diabetes 02/01/25 02/16/25 History diclofenac potassium 50 mg tablet 50 mg PO BID #60 tabs 02/16/25 Rx New Prescriptions to Start Prescriptions: Allergies Allergy/AdvReac Type Severity Reaction Status Date / Time No Known Allergies Allergy Verified 02/01/25 14:33 Assessment and Plan *Assessment and plan (1) Bilateral sacroiliitis: Status: Acute Category: Medical Code(s): M46.1 - Sacroiliitis, not elsewhere classified Plan Patient is experiencing worsening pain along the low back and bilateral hips. They did have limited range of motion of the lumbar spine along with point tenderness along bilateral SI joints and a positive bilateral Jian's, Janette's, Gaenslen's, compression and distraction exam. Patient is having worse pain more prominent on the right side versus the left. I did discuss with the patient that I do believe they would benefit from bilateral SI injections. Risk and benefits were discussed with the patient and they would like to proceed forward with this option. Patient has tried and failed conservative therapy. Patient has been actively doing conservative treatment including oral medication, heat and ice, topicals, chiropractor therapy and continued at home exercising and stretching for longer than 12 weeks that was physician guided. Patient is having to adjust their activity based off the increased pain resulting in activity modification. I do believe the patient would benefit from SI injection. Patient has a history of chronic back pain for longer than 6 months. If the patient does get significant relief following these injections we will see in the future if they would benefit from a second set with the possibility of SI fusion at a later date. This will be a diagnostic injection with less than 1 mL solution to be injected. Patient will be scheduled for bilateral SI injections under fluoroscopy. Patient has been instructed to contact the clinic with any concerns before the next appointment. Dr. Olson has reviewed this note and agrees with this plan of care. This note was dictated using voice recognition software and make contain errors or omissions. All injections are used with Lidocaine or Bupivacaine and dexamethasone unless diagnostic in which no steroids were injected.
[2025-03-27 11:01] VITALS: BP 138/77; PULSE 67; RESP 14; O2SAT 97; BMI 31.4
== END 2025-03-27 23:59 | disposition home or self-care (01) ==
LOC: SC.PAIN 09:40
PROVIDERS: PCP Internal Medicine Adolescent Medicine; Visit Provider Nurse Practitioner Family
DX: M46.1 Sacroiliitis, not elsewhere classified (principal)
CPT/HCPCS: 99212; G0463

== ENCOUNTER 2025-08-03 13:12 | Outpatient (CLI) | payer MEDICARE, SELFPAY ==
--- NOTE | 2025-08-03 13:16 | XR_ITS ---
FINAL REPORT CLINICAL HISTORY: pain x 1 month, carpal tunnel COMPARISON: None FINDINGS: RIGHT WRIST Three views demonstrate no acute fracture or dislocation. The visualized joint spaces are normally aligned. The soft tissues are remarkable for vascular calcifications. IMPRESSION: No acute bony abnormality. Reviewed, Interpreted and Dictated by Norman Link MD Transcribed by Carina Carrion Authenticated and [facility]
--- NOTE | 2025-08-03 13:16 | XR_ITS ---
FINAL REPORT CLINICAL HISTORY: pain x 1 month COMPARISON: None FINDINGS: LEFT WRIST Three views demonstrate no acute fracture or dislocation. The visualized joint spaces are normally aligned. The soft tissues are no calcifications. IMPRESSION: No acute bony abnormality. Reviewed, Interpreted and Dictated by Norman Link MD Transcribed by Carina Carrion Authenticated and [facility]
--- NOTE | 2025-08-03 13:16 | XR_ITS ---
FINAL REPORT CLINICAL HISTORY: PAIN x 1 month COMPARISON: None FINDINGS: LEFT HAND Three views demonstrate no acute fracture or dislocation. The visualized joint spaces are normally aligned. Mild hypertrophic change are present involving the DIP and PIP joints consistent with osteoarthritis. There is mild hypertrophic change in the basilar joint as well. Vascular calcifications are present. IMPRESSION: Mild changes of osteoarthritis involving the DIP, PIP, and basilar joints. Reviewed, Interpreted and Dictated by Norman Link MD Transcribed by Carina Carrion Authenticated and [facility] [place] [place]
--- NOTE | 2025-08-03 13:16 | XR_ITS ---
FINAL REPORT CLINICAL HISTORY: pain x 1 month COMPARISON: None FINDINGS: RIGHT HAND Three views demonstrate no acute fracture or dislocation. The visualized joint spaces are normally aligned. Mild hypertrophic changes are noted in the DIP and PIP joints consistent with osteoarthritic change. There is mild hypertrophic change in the basilar joint. Vascular calcifications are present. IMPRESSION: Mild osteoarthritic changes are present in the DIP, PIP, and the basilar joint. Reviewed, Interpreted and Dictated by Norman Link MD Transcribed by Carina Carrion Authenticated and . [facility]
--- OUTSIDE RECORDS SUMMARY | 2025-08-03 13:17 | XMS_ITS | Clinical Summary ---
Author Organization [facility] Address [address] [place] [address] Phone Care Team Providers Care Community Arts Officer Name Role Phone Andrzej Munroe MD Primary Care Provider [phone] Melody Andrade MD Unavailable [phone] Allergies No known active allergies Medications [...] on file Sexual Orientation Not on file Plan of Treatment Health Maintenance Due Date Last Done Comments Wellness Exam Medicare 1958 Hepatitis C Screening 1973 DTaP/TDaP/Td (1 - Tdap) 1974 Cologuard 2000 Colon Cancer Screening 2000 Colonoscopy 2000 FIT 2000 Sigmoidoscopy 2000 Virtual Colonography 2000 Zoster (1 of 2) 2005 Pneumococcal Vaccine 50+ (2 of 2 - PCV20 or PCV21) 06/05/2021 06/05/2020 COVID-19 Vaccine (1 - season) 2025 Influenza Vaccine (#1) 2025 2, 07/09/2021, 06/05/2020, Additional history exists Hepatitis B Vaccine Aged Out No longe r eligible based on patient's age to complete this topic Meningococcal B Vaccine Aged Out No l onger eligible based on patient's age to complete this topic Insurance [employer] MEDICARE PPO MR Care Teams Community Arts Officer Relationship Specialty Start Date End Date Andrzej Munroe MD [address] [place] [phone] PCP - General Internal Medicine-Adolescent Medicine 02/27/23 Melody Andrade MD [address] [place] [address] [place] [phone] Consulting Physician Internal Medicine - Clinical Cardiac Electrophysiology 02/27/23
== END 2025-08-03 23:59 | disposition home or self-care (01) ==
LOC: RAD 13:13
PROVIDERS: PCP Nurse Practitioner Family; Visit Provider Nurse Practitioner Family
DX: M19.042 Primary osteoarthritis, left hand (principal); M19.041 Primary osteoarthritis, right hand; M25.531 Pain in right wrist; M25.532 Pain in left wrist
CPT/HCPCS: 73110; 73130